=== PATIENT | female | born 1955 ===

== ENCOUNTER 2016-11-03 20:09 | Inpatient (IN) ==
--- NOTE | 2016-11-03 21:55 | Emergency Department Note ---
IIsidra Emily, am scribing for, and in the presence of, Corey Alfonso MD 21:13. Kaden Edmondson Hans, MD, personally performed the services described in this documentation, ascribed by Verona Miner in my presence, and it is both accurate and complete . Arrival - Arrival Chief Complaint: Altered Mental Status Stated Complaint: FALL, AMS ED Nursing Triage Note: PATIENT TO ROOM 20 VIA EMS WITH C/O ALTERED MENTAL STATUS AND MULTIPLE FALLS. FALLS X 2 TODAY. C/O SORENESS ALLOVER. Mode of Arrival: Stretcher Limitations: Altered Mental Status Source: Patient Time Seen by Provider: 11/03/16 20:36 - History of Present Illness HPI Narrative: Pt is a 61 y/o female who was brought to ED by EMS for further evaluation of AMS that has been ongoing for 3 weeks but worsened today. Daught Pt is poor historian due being very confused and is repetitive especially in mid thought/ sentence. Pt notes daughter comes to check on her daily and knows pt's PMHx. Onset (ago): month(s) Consistency: constant Severity: moderate Severity scale (1-10): 6 Quality: other (altered) Allergies/Adverse Reactions: Allergies Allergy/AdvReac Type Severity Reaction Status Date / Time No Known Allergies Allergy Unverified 10/27/16 12:43 Home Medications: Home Medications Medication Instructions Recorded Confirmed Type Aspirin [Ecotrin] 81 mg PO DAILY 10/27/16 10/27/16 History Carvedilol [Coreg] 6.25 mg PO BID 10/27/16 10/27/16 History Cyanocobalamin (Vitamin B-12) 1,000 mcg PO DAILY 10/27/16 10/27/16 History [Vitamin B-12] Ergocalciferol (Vitamin D2) 50,000 unit PO Q7D 10/27/16 10/27/16 History [Vitamin D2] Gabapentin 300 mg PO TID 10/27/16 10/27/16 History Glyburide/Metformin HCl 2 each PO BID W/MEALS 10/27/16 10/27/16 History [Glyburide-Metformin 5-500 mg] Insulin Aspart [NovoLOG FlexPen] 10 unit SUBCUT TID 10/27/16 10/27/16 History Insulin Detemir [Levemir FlexPen] 50 unit SUBCUT BEDTIME 10/27/16 10/27/16 History Lisinopril 20 mg PO DAILY 10/27/16 10/27/16 History Montelukast Tab [Singulair Tab] 10 mg PO DAILY 10/27/16 10/27/16 History SUMAtriptan TAB [Imitrex Tab] 50 mg PO QOTHER DAY 10/27/16 10/27/16 History Simvastatin 20 mg PO QPM 10/27/16 10/27/16 History prednisoLONE AC 1% OPH SUSP [Pred 1 drop BOTH EYES QID 10/27/16 10/27/16 History Forte] Review of System - Review of System ROS unobtainable: due to mental status Medical,Surgical,& Family Hx - Social History Smoking Status: Unknown if ever smoked Frequency of Alcohol Use: None Type of Drug Use: None Marital Status: Single Lives With:: Alone Functional capacity: independent ambulation Exam Vital Signs: Vital Signs Temperature 98.1 F 11/03/16 20:50 Pulse Rate 80 11/03/16 20:50 Respiratory Rate 20 11/03/16 20:50 Blood Pressure 163/82 11/03/16 20:50 O2 Sat by Pulse Oximetry 99 11/03/16 20:10 - General General appearance: alert, in no apparent distress, obese - Eye Eye exam: Present: PERRL, EOMI - ENT ENT exam: Present: mucous membranes moist. Absent: mucous membranes dry - Neck Neck exam: Present: full ROM. Absent: tenderness - Chest Chest inspection: Present: symmetric chest wall rise. Absent: tenderness - Respiratory Respiratory exam: Present: normal lung sounds bilaterally. Absent: respiratory distress - Cardiovascular Cardiovascular exam: Present: regular rate, normal rhythm, normal heart sounds - Extremities Exam Extremities exam: Present: full ROM. Absent: tenderness, pedal edema - Neurological Exam Neurological exam: Present: alert, CN II-XII intact, other (very confused). Absent: oriented X3, motor sensory deficit - Skin Skin exam: Present: warm, dry Course Course Narrative: This patient was evaluated by reviewing her records from [place]. She has had worsening confusion with frequent falls and balance issues and also has a what appears to be chronic cranial nerve palsy #3. Due to her frequent falls and recommendation for MRI by the radiologist looked at her head CT I discussed her presentation with the hospitalist on-call and he has agreed to see her for admission for MRI and neurology consultation. We will also check a urinalysis based on her symptoms to see if she has urinary tract infection but apparently her daughter says this was negative the chart on Wednesday. Disposition Clinical Impression: Altered mental status Case discussed with: patient, patient's family Disposition: Still a Patient Condition: Stable Time of Disposition: 21:55
--- NOTE | 2016-11-03 22:41 | Hospitalist History & Physical ---
Assessment and Plan (1) Diabetes Status: Acute Current Visit: Yes (2) Frequent falls Status: Acute Current Visit: Yes (3) Chronic sinusitis Status: Acute Current Visit: No (4) Altered mental status Status: Acute Assessment and plan: Plan for this patient. Patient does present a confusing picture. She is awake and sometimes seems alert and appropriate and then while talking with you she will zone out. Her mentation will drift away and she will talk about things that were not asked. I wonder if the patient is depressed. I do feel that we need to get a MRI of her brain and consult neurology. We will get physical therapy to see her need to x-ray both her knee she complains of a lot of pain in her knees. Family is concerned that they will not be able to take care of her at home if she continues to be like this. Current Visit: Yes History of Present Illness Chief complaint: Altered mental status frequent falling History of present illness: Ms. Anderson is a 61 year old female with past medical history significant for diabetes hypertension microvascular disease and neuropathy who was brought to our hospital from the [facility]. Patient's daughter reports that patient has had one sickness after another since July. The took a trip to [place] and seemed like her mother is gotten progressively ill during that time. But for the past few days her daughters noticed that her mom mentally is not right. She is awake but gets confused and drifts away in conversation. Sometimes she will repeat questions appropriately and sometimes she acts like she can answer. Daughter reports that the other day she had fallen and she cannot get up. Then a few minutes later her mother got up by herself without any problem. She has been seeing the internal medicine nurse who has been performing some cuttings on her legs. She reports this seems to help her. His come to the point now where it is hard for her to walk. 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 She has been dealing with that all her life. When you question the patient about where she is hurting she says she hurts all over Home Medications Medication Instructions Recorded Confirmed Type Aspirin [Ecotrin] 81 mg PO DAILY 10/27/16 10/27/16 History Carvedilol [Coreg] 6.25 mg PO BID 10/27/16 10/27/16 History Cyanocobalamin (Vitamin B-12) 1,000 mcg PO DAILY 10/27/16 10/27/16 History [Vitamin B-12] Ergocalciferol (Vitamin D2) 50,000 unit PO Q7D 10/27/16 10/27/16 History [Vitamin D2] Gabapentin 300 mg PO TID 10/27/16 10/27/16 History Glyburide/Metformin HCl 2 each PO BID W/MEALS 10/27/16 10/27/16 History [Glyburide-Metformin 5-500 mg] Insulin Aspart [NovoLOG FlexPen] 10 unit SUBCUT TID 10/27/16 10/27/16 History Insulin Detemir [Levemir FlexPen] 50 unit SUBCUT BEDTIME 10/27/16 10/27/16 History Lisinopril 20 mg PO DAILY 10/27/16 10/27/16 History Montelukast Tab [Singulair Tab] 10 mg PO DAILY 10/27/16 10/27/16 History SUMAtriptan TAB [Imitrex Tab] 50 mg PO QOTHER DAY 10/27/16 10/27/16 History Simvastatin 20 mg PO QPM 10/27/16 10/27/16 History prednisoLONE AC 1% OPH SUSP [Pred 1 drop BOTH EYES QID 10/27/16 10/27/16 History Forte] Allergies Allergy/AdvReac Type Severity Reaction Status Date / Time No Known Allergies Allergy Unverified 10/27/16 12:43 Medical,Surgical,& Family Hx - Medical History Neurology: History of: Neurological Problems (Neuropathy) Endocrine: History of: Diabetes Mellitus (IDDM) - Surgical History Additional Surgical History: None - Family History Family History: Reports;: Family Cancer, Family Diabetes, Additional Family History (Peripheral vascular disease) - Social History Smoking Status: Unknown if ever smoked Frequency of Alcohol Use: None Type of Drug Use: None ROS unobtainable: due to mental status Exam - Constitutional Vitals: Period Temp Pulse Resp BP Sys/Hartmann Pulse Ox Last 24 Hr 98.1 F-98.1 F 80-80 20-20 163-163/82-82 99 General appearance: morbidly obese - Head Head exam: Present: normal inspection - Eye Eye exam: Present: EOMI (Patient has a lag and her extraocular movements on her left this has been chronic) - ENT ENT exam: Present: normal exam - Neck Neck exam: Present: normal inspection - Respiratory Respiratory exam: Present: clear to auscultation bilaterally - Cardiovascular Cardiovascular exam: Present: regular rate and rhythm - GI/Abdominal GI/Abdominal exam: Present: normal bowel sounds - Extremities Exam Extremities exam: Present: other (Patient has pain with movement of her lower extremities. 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) - Back Exam Back exam: Present: normal inspection - Neurological Exam Neurological exam: Present: alert - Psychiatric Psychiatric exam: Present: normal affect - Skin Skin exam: Present: normal color Results - Labs Labs: Labs from outside facility total protein 8.1 calcium 9.6 creatinine 1.4 nightly 25 sodium 137 potassium 4.7 chloride 101 bicarb 26.7 albumin 3.7 total bili 0.6 alk phos 75 SGOT 38 SGPT 44 glucose [address] scan of her head that showed no significant change when compared to previous study nothing acute is identified but recommended if further evaluation is needed MRI she does have minimal bilateral cerebral ischemia in her atrophy is consistent with her age
[2016-11-03] MEDS ORDERED: GLUCAGON 1 MG VIAL IM PRN (22:55)
[2016-11-04 02:06] LABS: Apearance,Urine CLOUDY (Clear); Bacteria,Urine Moderate /HPF (Few); Bilirubin,Urine Negative (Negative); Blood, Urine Negative (Negative); Glucose,Urine (UA) Negative (Negative); Granular Casts,Urine 3 /LPF (0-1); Hyaline Casts,Urine 7 /LPF (0-3); Ketones,Urine 5 mg/dL (Negative); Mucus,Urine Occasional /LPF (Occasional); Nitrite,Urine Negative (Negative); Protein,Urine Negative; Squamous Epithelial Cell,Urine Few /HPF (0-10); Urine Color Yellow (Yellow); Urine Specific Gravity 1.024 (1.001-1.035); WBC,Urine 8 /HPF (0-6)
[2016-11-04] MEDS: ALBUTEROL 2.5 MG/3 ML NEB RESP TX SCH ×3 (07:00→19:19)
[2016-11-04 07:16] LABS: Basophils # 0.1 10*3/uL (0.0-0.2); Basophils % 0.5 % (0.0-0.8); Eosinophils % 0.1 % (0.00-10.9); Hematocrit 36.2 VOL% (35.7-47.0); Hemoglobin 12.3 GM/DL (12.0-16.0); Immature Granulocytes % 0.4 %; Immature Granulocytes Absolute 0.05 #; Lymphocytes # 2.2 10*3/uL (1.4-4.0); Lymphocytes % 16.2 % (21.3-54.2); Mean Corpuscular Hemoglobin 29 PG (27-34); Mean Corpuscular Volume 86.2 FL (87-102); Mean Platelet Volume 10.5 FL (9.6-12.0); Monocytes # 0.8 10*3/uL (0.11-0.8); Monocytes % 5.6 % (1.7-12.7); Neutrophils # 10.5 10*3/uL (1.4-7.4); Neutrophils % 77.2 % (38.7-73.9); Platelet Count 279 T/CUMM (130-400); Red Cell Distribution Width 12.7 % (9.3-17.3); White Blood Count 13.7 T/CUMM (4-12)
[2016-11-04 07:43] LABS: Calcium 9.1 MG/DL (8.5-10.1); Osmolality,Calculated 280.7 MOS/KG (273-304); Potassium 4.4 MMOL/L (3.5-5.1)
[2016-11-04] MEDS: INSULIN REGULAR 100 UNIT/ML SUBCUT SCH ×4 (08:35→22:08)
[2016-11-04] MEDS ORDERED: ASPIRIN EC 81 MG TABLET PO SCH (09:00)
[2016-11-04] MEDS ORDERED: ENOXAPARIN 40 MG/0.4 ML SYRINGE SUBCUT SCH (09:00)
--- NOTE | 2016-11-04 09:27 | XRay Report ---
XR knee 2V BI Indication: Knee pain after fall. Bilateral knees, 2 views each, 4 views total: Both knees demonstrate severe 3 compartment osteophyte development of significant joint space narrowing and varus deformity. I see no acute fracture. No dislocation. No joint effusion on either side. Impression: Severe 3 compartment osteoarthritis bilaterally. No acute injury identified. PROCEDURE INTERPRETED AT [facility] DEPARTMENT OF RADIOLOGY Final Report Signed by: Rakesh Saravia M.D.
[2016-11-04] MEDS: CYANOCOBALAMIN 500 MCG TABLET PO SCH (09:39)
[2016-11-04] MEDS: ERGOCALCIFEROL 50,000 UNIT CAPSULE PO SCH (09:39)
[2016-11-04] MEDS: glyBURIDE/METFORMIN 5-500 MG TABLET PO SCH ×2 (09:40→17:49)
[2016-11-04] MEDS: GABAPENTIN 300 MG CAPSULE PO SCH ×3 (09:41→21:06)
[2016-11-04] MEDS: CARVEDILOL 6.25 MG TABLET PO SCH ×2 (09:41→21:06)
[2016-11-04] MEDS: ACETAMINOPHEN 325 MG TABLET PO PRN (09:42)
[2016-11-04] MEDS: MONTELUKAST 10 MG TABLET PO SCH (09:43)
[2016-11-04] MEDS: LISINOPRIL 20 MG TABLET PO SCH (09:43)
--- NOTE | 2016-11-04 11:08 | Magnetic Resonance Report ---
History: Confusion. Altered level of consciousness. Chronic 3rd nerve palsy Date: 11/04/2016 Study: MRI brain without IV contrast Comparison exam: Noncontrast CT brain November 03, 2016 The brain was imaged in 3 planes on the 1.2 Ary magnet without IV contrast, to include diffusion, T2, FLAIR, gradient echo, and T1-weighted sequences. Some of the sequences have some moderate patient motion artifact. The ventricles are midline in position without evidence of hydrocephalus. There is no Chiari I malformation. There is no gross pituitary mass. The patient has a so-called empty pituitary sella. There is no evidence to suggest acute ischemia on the diffusion sequence. There is no gross mass present on this motion limited study. There is no evidence to suggest previous or current hemorrhage. There is no extra-axial hematoma. There is a normal flow void in the superior sagittal sinus. There is no gross flow abnormality in the [place] area. There is only a small amount of patchy increased T2 signal in the periventricular white matter without mass effect compatible with mild periventricular small vessel disease. There is mild mucosal thickening in the left maxillary sinus and both ethmoid sinuses. Impression: No acute intracranial process is identified. No evidence of ischemia. The study has some motion artifact limitation. There is some mild left maxillary and bilateral ethmoid sinus disease which could be chronic or allergic PROCEDURE INTERPRETED AT [facility] DEPARTMENT OF RADIOLOGY Final Report Signed by: Dr. Ileana Peoples
[2016-11-04 13:36] LABS: INR 1.1; PT Patient Result 11.4 SECS; Partial Thromboplastin Time 28.9 SECS (0-40)
[2016-11-04] MEDS ORDERED: AMPICILLIN INJ 2,000 MG in SODIUM CHLORIDE 0.9% 100 ML IV SCH (14:00)
--- NOTE | 2016-11-04 14:39 | CT Report ---
CT lumbar spine w con Indication: Bilateral lower extremity weakness Comparison: None. Technique: Routine CT of the lumbar spine was performed without the administration of intravenous contrast. Axial images as well as coronal and sagittal MPR images of the lumbar spine was submitted for interpretation. The total DLP is 3040 mGy*cm. Findings: Lumbar vertebral bodies demonstrate normal alignment. Vertebral body height is well maintained throughout the lumbar spine. Mild focal disc space loss is noted at L1-L2 and L2-L3. There is also moderate to advanced facet arthropathy at L3-4 through L5-S1. There is suggestion of moderate to severe central stenosis at the L4-5 level due to facet/ligamentum flavum hypertrophy and a prominent posterior disc bulge. This is not well visualized due to CTA technique. Otherwise, there is no evidence of significant central stenosis. The prevertebral soft tissues as well as posterior paraspinous musculature and imaged intra-abdominal contents demonstrate no evidence of acute pathology. Partially imaged bladder appears prominently distended. Impression: 1. No acute fracture or subluxation within the lumbar spine. Multilevel degenerative changes as detailed above. 2. Possible focal disc bulge/protrusion at L4-L5 with associated degenerative changes causing at least moderate spinal stenosis. This is not well visualized due to CT technique. 3. Bladder is only partially imaged but appears probably distended. 11/04/2016 2:31 PM PROCEDURE INTERPRETED AT [facility] DEPARTMENT OF RADIOLOGY Final Report Signed by: Santino Elliott
--- NOTE | 2016-11-04 14:41 | CT Report ---
Exam: CT cervical spine with contrast Date: 11/04/2016 Comparison: None Reason: Bilateral lower extremity weakness Technique: Axial images of the cervical spine were obtained following the injection 100 cc of Omnipaque 350.. Sagittal and coronal reformatted images were also acquired. Total DLP is 3804.8 mGy*cm. Findings: Straightening of the cervical spine with no fracture, dislocation, or definite spinal cord pathology. There is streak artifact from the shoulders which limits the scans. No definite abnormal enhancement is identified. At C2-C3, no disc protrusion or spinal stenosis with minimal right foraminal stenosis At C3-C4, diffuse osteophyte/disc complex which contacts the thecal sac. No spinal stenosis or foraminal stenosis. At C4-C5, osteophyte/disc complex which contacts the right side of the spinal cord. Minimal spinal stenosis and bilateral foraminal stenosis. At C5-C6, osteophyte/disc complex which contacts the thecal sac. No spinal stenosis or foraminal stenosis. At C6-C7, osteophyte/disc complex which contacts the thecal sac. No spinal stenosis or foraminal stenosis. At C7-T1, no disc protrusion, spinal stenosis, or foraminal stenosis. Impression: Straightening of the cervical spine with no fracture. These scans are limited by streak artifact from the shoulders with evidence of multilevel DDD as above noted. MRI is more sensitive for spinal cord pathology and is recommended if symptoms persist. This CT exam was performed using one or more of the following dose reduction techniques: Automatic exposure control, adjustment of the MA and/or KV according to patient size, or use of iterative reconstruction technique. PROCEDURE INTERPRETED AT [facility] DEPARTMENT OF RADIOLOGY Final Report Signed by: Dr. Natalee Quintana
--- NOTE | 2016-11-04 14:52 | CT Report ---
Exam:CT thoracic spine w con Indication: Bilateral lower extremity weakness The total DLP is 3040 mGy*cm. Comparison: None available Technique: Multiple axial tomographic images were obtained of the thoracic spine without the use of IV contrast. Coronal and sagittal reformations were provided. Findings: Study is limited due to patient motion and streak artifact with portions of the upper thoracic cord not well visualized. Evaluation is made within the technical confines. Vertebral body heights and alignment are maintained. There is no acute fracture or dislocation. Idiopathic skeletal hypertrophy changes with prominent bridging osteophytes are noted of the lower thoracic levels. There is mild rightward scoliotic deformity of the thoracic spine. No obvious spinal canal or neuroforaminal narrowing. The visualized surrounding soft tissues have a normal appearance. IMPRESSION: No CT evidence of acute injury to the osseous thoracic spine. Evaluation is limited for assessment of the spinal cord given CT technique/patient motion. If there is continued clinical concern for spinal cord compression, MRI thoracic spine would be recommended. PROCEDURE INTERPRETED AT [facility] DEPARTMENT OF RADIOLOGY Final Report Signed by: Santino Elliott
[2016-11-04 15:21] LABS: ABG Base Excess -2.2 MMOL/L (-2.5-2.5); ABG HCO3 22.6 MMOL/L (20-26); ABG Oxygen Saturation 98.1 % (95-100); ABG PCO2 32.2 MM HG (35-48); ABG PH 7.427 (7.35-7.45); ABG TCO2 18.5 MMOL/L (23-27); Allen Test Positive; Pt O2 Delivery Device Room Air
--- NOTE | 2016-11-04 15:25 | Neurology Consult Note ---
History of Present Illness History of present illness: Ms. Anderson is a 61 year old female with past medical history significant for diabetes hypertension microvascular disease and neuropathy who was brought to our hospital from the [facility]. Patient's reported that patient has been sick since July. They took a trip to [place] and seemed she has gotten progressively ill during that time. But for the past few days her daughters noticed that her mom mentally is not right. She is awake but gets confused and drifts away in conversation. Sometimes she will repeat questions appropriately and sometimes she acts like she can answer. Daughter reports that the other day she had fallen and she cannot get up. Then a few minutes later her mother got up by herself without any problem. She has been seeing the emergency medicine who has been performing some cuttings on her legs. She reports this seems to help her. His come to the point now where it is hard for her to walk. 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 She has been dealing with that all her life. MRI of the brain is unremarkable for any acute stroke. CT of the lumbar thoracic and cervical spine reveals multilevel DDD. Home Medications Medication Instructions Recorded Confirmed Type Aspirin [Ecotrin] 81 mg PO DAILY 10/27/16 11/04/16 History Carvedilol [Coreg] 6.25 mg PO BID 10/27/16 11/04/16 History Cyanocobalamin (Vitamin B-12) 1,000 mcg PO DAILY 10/27/16 11/04/16 History [Vitamin B-12] Ergocalciferol (Vitamin D2) 50,000 unit PO Q7D 10/27/16 11/04/16 History [Vitamin D2] Gabapentin 300 mg PO TID 10/27/16 11/04/16 History Glyburide/Metformin HCl 2 each PO BID W/MEALS 10/27/16 11/04/16 History [Glyburide-Metformin 5-500 mg] Insulin Aspart [NovoLOG FlexPen] 10 unit SUBCUT TID W/MEALS 10/27/16 11/04/16 History Insulin Detemir [Levemir FlexPen] 50 unit SUBCUT BEDTIME 10/27/16 11/04/16 History Lisinopril 20 mg PO DAILY 10/27/16 11/04/16 History Montelukast Tab [Singulair Tab] 10 mg PO DAILY 10/27/16 11/04/16 History SUMAtriptan TAB [Imitrex Tab] 50 mg PO Q2-3H PRN 10/27/16 11/04/16 History Simvastatin 20 mg PO QPM 10/27/16 11/04/16 History prednisoLONE AC 1% OPH SUSP [Pred 1 drop BOTH EYES QID 10/27/16 11/04/16 History Forte] Albuterol Inhaler [Proventil 2 puff INH Q6HR 11/03/16 11/04/16 History Inhaler] Mineral Oil/Petrolatum,White 3.5 gm BOTH EYES BEDTIME PRN 11/04/16 11/04/16 History [Artificial Tears Eye Ointment] Propylene Glycol/Peg 400 [Systane 15 ml BOTH EYES QID PRN 11/04/16 11/04/16 History Gel Drops] Allergies Allergy/AdvReac Type Severity Reaction Status Date / Time No Known Allergies Allergy Unverified 10/27/16 12:43 12 point system: reviewed and no additional remarkable complaints except as stated Medical,Surgical,& Family Hx - Medical History Cardio: History of: Hypertension Neurology: History of: Neurological Problems (Neuropathy) Endocrine: History of: Diabetes Mellitus (IDDM) - Family History Family History: Reports;: Family Cancer, Family Diabetes, Additional Family History (Peripheral vascular disease) - Social History Smoking Status: Unknown if ever smoked Frequency of Alcohol Use: None Type of Drug Use: None Exam - Constitutional Vitals: Period Temp Pulse Resp BP Sys/Hartmann Pulse Ox Last 24 Hr 97.4 F-100.0 F 72-92 16-20 125-135/67-78 92-99 Exam: GENERAL: Patient is in no acute distress. NECK: Neck is supple. There is no JVD. No carotid bruits present. No thyroid masses. CVS: First and second heart sounds are normal. There is no S3 present. Regular rate and rhythm. RESPIRATORY: Lungs are clear to auscultation without any rales or rhonchi. ABDOMEN: Soft and non-tender. Bowel sounds are present. There is no hepatosplenomegaly. EXT: There is no palpable edema. Peripheral pulses are present. Skin: No rashes Central Nervous system: General: Alert, awake and Oriented x 3 Speech: Fluent Comprehension: Intact and normal Facial expressions: Normal Cranial Nerves: CN1/Olfactory: Normal CN II/ Optic: Normal, Visual Yoon unreliable CN III, and : LIVIA & EOMI CN V: Normal & intact CN VII: face is symmetric CNVIII: Normal CN XI/X/XI/XII: Intact and Normal Motor: Bulk and Tone is normal. Strength in the right 3/5 Strength in the left 3/5 Sensory: Decreased for all the modalities of PP, LT and temp sense Reflexes: 1+ and symmetrical Cerebellar function: Normal finger to nose and heel to stuart testing. Toes: Equivocal Gait: N not tested Results - Labs CBC & BMP: 11/04/16 07:03 11/04/16 07:03 Assessment and Plan (1) Debility Status: Acute Assessment and plan: This is multifactorial. No clear evidence of stroke, TIAs, epilepsy, seizure, primary QUALITY CONTROL ASSISTANT or spinal cord injuries/pathology. Continue current management. Consult TMR Current Visit: Yes
[2016-11-04] MEDS: DESITIN 4OZ/NYSTATIN 15 GRAM MIXTURE PASTE TOP SCH ×2 (16:17→21:06)
[2016-11-04] MEDS: prednisoLONE ACETATE 1% OPH SUSP 5 ML BOTTLE BOTH EYES SCH ×4 (16:17→21:06)
[2016-11-04] MEDS: AMPICILLIN INJ 2,000 MG in SODIUM CHLORIDE 0.9% 100 ML IV SCH ×2 (17:28→23:48)
[2016-11-04] MEDS: cefTRIAXone 2,000 MG in SODIUM CHLORIDE 0.9% 100 ML IV SCH (18:12)
--- NOTE | 2016-11-04 18:39 | Hospitalist Progress Note ---
Assessment and Plan (1) Altered mental status Status: Acute Assessment and plan: MRI of the brain shows no evidence of stroke, ABG shows no elevation in PCO2, ammonia level 19, patient does have evidence of a UTI. Patient was put on prophylactic antibiotics to cover meningitis and encephalitis. Spoke at length with Dr. Ramsey and will proceed with spinal tap tomorrow. Continue Rocephin, vancomycin, ampicillin and acyclovir. Current Visit: Yes (2) Leukocytosis Status: Acute Assessment and plan: MRI shows chronic sinus disease. Does have a UTI should be adequately covered by Rocephin culture pending Current Visit: Yes (3) UTI (urinary tract infection) Status: Acute Assessment and plan: Continue Rocephin Current Visit: Yes (4) Diabetes Status: Acute Assessment and plan: Continue metformin and glyburide Current Visit: Yes (5) Frequent falls Status: Acute Assessment and plan: PT and OT, consult [facility] for rehab, CTs showed no evidence of acute fracture or spinal cord impingement other than the spinal stenosis at L4-L5, consider EMG Current Visit: Yes (6) Debility Status: Acute Assessment and plan: PT and OT and [facility] for rehab Current Visit: Yes Hospitalist: Subjective Interval history: Discussed case with Dr. Ramsey at length. We will proceed with the spinal tap tomorrow but he does not believe she has meningitis or encephalitis. She was alert and oriented 3 when he saw her and he saw no evidence of odd behavior. Daughter was not in the room at the time when Dr. Ramsey interviewed her but she was alert and oriented times 3 for him. When I spoke with her she got the month wrong. Daughter was concerned that she injured her back after a fall causing difficulty walking. CT of spinal cord done. During her MRI she was very agitated and moving around and they said they did not get a good picture but it was read Dr. Ramsey reviewed the MRI. Patient tore out her IV, she started licking the MRI machine and started to eat her arm band. Daughter says over the last week she has been having odd behavior and it is not consistent. She also most recently developed more difficulty walking on to the point where she cannot walk. Dr. Ramsey will do an EMG on her legs tomorrow and will plan on taking her to [facility] for rehab. Exam - Constitutional Vitals: Period Temp Pulse Resp BP Sys/Hartmann Pulse Ox Last 24 Hr 97.4 F-100.0 F 72-92 16-20 125-135/67-78 92-99 Exam: Heart Rate-[RRR] Lungs-[CTAB] GI-[+bs soft, NT] Ext-[no edema] Neuro [Motor 5/5], [alert and oriented times 2], easily falling asleep psych [normal mood and affect] General [no acute distress] Results - Labs CBC & BMP: 11/04/16 07:03 11/04/16 07:03 - Diagnostic Findings Procedure: CT: report reviewed by me (Nothing acute but does have some spinal stenosis at L4-L5), MRI: report reviewed by me (no evidence of stroke )
[2016-11-04] MEDS: ACYCLOVIR IV SCH (18:56)
[2016-11-04] MEDS: SODIUM CHLORIDE 0.9% IV SCH (18:56)
[2016-11-04] MEDS: VANCOMYCIN INJ 2,500 MG in SODIUM CHLORIDE 0.9% 500 ML IV SCH (20:36)
[2016-11-04] MEDS: SIMVASTATIN 20 MG TABLET PO SCH (21:06)
[2016-11-05] MEDS: ALBUTEROL 2.5 MG/3 ML NEB RESP TX SCH ×4 (01:12→19:25)
[2016-11-05] MEDS: AMPICILLIN INJ 2,000 MG in SODIUM CHLORIDE 0.9% 100 ML IV SCH ×4 (02:01→15:20)
[2016-11-05] MEDS: SODIUM CHLORIDE 0.9% IV SCH ×3 (03:12→21:04)
[2016-11-05] MEDS: ACYCLOVIR IV SCH ×3 (03:12→21:04)
[2016-11-05] MEDS: cefTRIAXone 2,000 MG in SODIUM CHLORIDE 0.9% 100 ML IV SCH ×2 (05:56→22:23)
[2016-11-05 06:35] LABS: Basophils # 0.1 10*3/uL (0.0-0.2); Basophils % 0.6 % (0.0-0.8); Eosinophils % 0.1 % (0.00-10.9); Hematocrit 38.3 VOL% (35.7-47.0); Hemoglobin 12.8 GM/DL (12.0-16.0); Immature Granulocytes % 0.4 %; Immature Granulocytes Absolute 0.06 #; Lymphocytes # 2.1 10*3/uL (1.4-4.0); Lymphocytes % 13.1 % (21.3-54.2); Mean Corpuscular HGB Conc 33.4 GM/DL (32-36); Mean Corpuscular Hemoglobin 29 PG (27-34); Mean Corpuscular Volume 87.8 FL (87-102); Mean Platelet Volume 10.4 FL (9.6-12.0); Monocytes % 6.5 % (1.7-12.7); Neutrophils # 12.4 10*3/uL (1.4-7.4); Neutrophils % 79.3 % (38.7-73.9); Platelet Count 298 T/CUMM (130-400); Red Blood Count 4.36 MC/CUMM (3.8-5.5); Red Cell Distribution Width 12.6 % (9.3-17.3); White Blood Count 15.6 T/CUMM (4-12)
[2016-11-05 07:09] LABS: Albumin 3.2 G/DL (3.4-5.0); Bilirubin,Total 0.7 MG/DL (0.2-1.0); Calcium 8.6 MG/DL (8.5-10.1); Osmolality,Calculated 288.1 MOS/KG (273-304); Potassium 4.5 MMOL/L (3.5-5.1); Total Protein 6.8 G/DL (6.4-8.3)
[2016-11-05] MEDS: DESITIN 4OZ/NYSTATIN 15 GRAM MIXTURE PASTE TOP SCH ×2 (08:00→21:04)
[2016-11-05] MEDS: LISINOPRIL 20 MG TABLET PO SCH ×2 (08:00→12:20)
[2016-11-05] MEDS: INSULIN REGULAR 100 UNIT/ML SUBCUT SCH ×4 (08:00→22:23)
[2016-11-05] MEDS: CYANOCOBALAMIN 500 MCG TABLET PO SCH (08:00)
[2016-11-05] MEDS: glyBURIDE/METFORMIN 5-500 MG TABLET PO SCH ×2 (08:00→17:21)
[2016-11-05] MEDS: VANCOMYCIN INJ 2,500 MG in SODIUM CHLORIDE 0.9% 500 ML IV SCH ×2 (08:00→16:10)
[2016-11-05] MEDS: MONTELUKAST 10 MG TABLET PO SCH (08:00)
[2016-11-05] MEDS: GABAPENTIN 300 MG CAPSULE PO SCH ×3 (08:00→21:04)
[2016-11-05] MEDS: CARVEDILOL 6.25 MG TABLET PO SCH ×3 (08:00→21:04)
--- NOTE | 2016-11-05 10:27 | Hospitalist Progress Note ---
Assessment and Plan (1) Altered mental status Status: Acute Assessment and plan: Dr. Ramsey will continue to follow. Will proceed with spinal tap to rule out meningitis encephalitis. Current Visit: Yes (2) Leukocytosis Status: Acute Assessment and plan: MRI shows chronic sinus disease. Does have a UTI with two types of gram negative rods cont rocephin IV Current Visit: Yes (3) UTI (urinary tract infection) Status: Acute Assessment and plan: Growing two types of gram negative rods, continue Rocephin Current Visit: Yes (4) Diabetes Status: Acute Assessment and plan: Hemoglobin A1c 7, continue metformin and glyburide Current Visit: Yes (5) Frequent falls Status: Acute Assessment and plan: PT and OT, consult [facility] for rehab, CTs showed no evidence of acute fracture or spinal cord impingement other than the spinal stenosis at L4-L5, EMG today bilateral LE Current Visit: Yes (6) Debility Status: Acute Assessment and plan: PT and OT and [facility] for [facility] Current Visit: Yes Hospitalist: Subjective Interval history: Patient's legs seem a little stronger today. She is still delayed on her answers even though her answers are mostly right. Patient seems very sleepy and readily falls back to sleep. She needs a sleep study. We will proceed with a spinal tap today. Dr. Ramsey will continue to follow Exam - Constitutional Vitals: Period Temp Pulse Resp BP Sys/Hartmann Pulse Ox Last 24 Hr 98.1 F-99.7 F 61-85 16-22 145-157/75-99 96-99 Exam: Heart Rate-[RRR] Lungs-[CTAB] GI-[+bs soft, NT] Ext-[no edema] Neuro [Motor 4/5 LE and 5/5 in UE], [alert and oriented times 2], easily falling asleep psych [normal mood and flat affect] General [no acute distress] Results - Labs CBC & BMP: 11/05/16 06:19 11/05/16 06:19 Lab Results: I have reviewed the past 24 hour labs Labs: Patient growing gram-negative rods 2 in her urine.
--- NOTE | 2016-11-05 10:42 | Post Interventional Procedure ---
Pre-op diagnosis: AMS Post-op diagnosis: same Procedure: LP Flouroscopy: 0.1 min Radiologist: Rakesh Saravia Anesthesia: local Specimens: other (8 cc CSF) Estimated blood loss: none Complications: none Condition: stable Description/Findings: OP 18 cm-water Assessment and Plan - Time spent with patient Time spent with patient: Less than 30 minutes
[2016-11-05] MEDS: prednisoLONE ACETATE 1% OPH SUSP 5 ML BOTTLE BOTH EYES SCH ×4 (10:48→21:04)
[2016-11-05 11:31] LABS: Lymphocytes,CSF 79 %; Neutrophils,CSF 21 %
[2016-11-05 11:33] LABS: Appearance,CSF Hazy; Red Blood Cell,CSF 6 C/CUMM; White Blood Cell,CSF 1932 C/CUMM
--- NOTE | 2016-11-05 12:40 | Interventional Radiology Rpt ---
IR lumbar puncture diagnostic Indication: Altered mental status. Lumbar puncture with fluoroscopy Description: Formal timeout was performed. Maximum sterile barrier technique used. The patient was placed prone on the fluoroscopy table. The low back was prepped and draped in a sterile fashion. A midline lumbar puncture was then performed at the L3-4 interspace using a 22-gauge spinal needle. Fluoroscopic guidance was used and a captured image documents the needle position. An opening pressure of 18 cm water was obtained. 8 cc clear, colorless CSF was withdrawn and sent to laboratory. Needle was removed and a bandage placed the puncture site. Fluoroscopy time: 0.1 minutes. Impression: Lumbar puncture as described. PROCEDURE INTERPRETED AT [facility] DEPARTMENT OF RADIOLOGY Final Report Signed by: Rakesh Saravia M.D.
--- NOTE | 2016-11-05 14:13 | Sleep Medicine Consult ---
Assessment and Plan (1) Unspecified sleep apnea Status: Acute Assessment and plan: This patient does have some symptoms of snoring and sleepiness in recent weeks. There is nothing dramatically suggestive of severe obstructive sleep apnea. I do not think sleep apnea is a primary contributing factor to her current illness. However, with her obesity, snoring, and history of type 2 diabetes, I do think that she needs outpatient polysomnography. She resides in [facility] and her daughter works in [employer]. We can set her up for outpatient polysomnography at the [facility] sleep center. Current Visit: Yes (2) Diabetes Status: Acute Assessment and plan: The prevalence for obstructive sleep apnea in patients with obesity and type 2 diabetes can be as high as 86%. This patient should be evaluated for sleep apnea. Patients with type 2 diabetes who have moderate to severe sleep apnea are at greater risk for developing complications of diabetic neuropathy and nephropathy. Current Visit: Yes (3) Obesity, unspecified Status: Acute Assessment and plan: Patient encouraged to continue to work on weight loss thru appropriate dieting and exercise. The combination of weight loss and CPAP therapy for obstructive sleep apnea is better than either therapy alone for obstructive sleep apnea. Current Visit: Yes History of Present Illness Chief complaint: Sleep apnea History of present illness: Ms. Anderson is a 61 year old female admitted for mental status changes and undergoing neurological evaluation. She had lumbar puncture today with CSF analysis. She has had waxing and waning mental status changes notable for periods of lethargy and hypersomnolence. Physicians have noted periods of delusional thinking and talking out of her head intermixed with periods of hypersomnolence. The daughter is at the bedside and states that she does have a history of snoring but does not describe it is loud or disruptive. She has not been observed to stop breathing during her sleep. The patient denies awakening from sleep short of breath. She only usually arouses once at night to urinate. There is no significant symptoms of restless legs or leg jerks. The daughter denies any significant sleepiness during the day up until the last week or 2. Home Medications Medication Instructions Recorded Confirmed Type Aspirin [Ecotrin] 81 mg PO DAILY 10/27/16 11/04/16 History Carvedilol [Coreg] 6.25 mg PO BID 10/27/16 11/04/16 History Cyanocobalamin (Vitamin B-12) 1,000 mcg PO DAILY 10/27/16 11/04/16 History [Vitamin B-12] Ergocalciferol (Vitamin D2) 50,000 unit PO Q7D 10/27/16 11/04/16 History [Vitamin D2] Gabapentin 300 mg PO TID 10/27/16 11/04/16 History Glyburide/Metformin HCl 2 each PO BID W/MEALS 10/27/16 11/04/16 History [Glyburide-Metformin 5-500 mg] Insulin Aspart [NovoLOG FlexPen] 10 unit SUBCUT TID W/MEALS 10/27/16 11/04/16 History Insulin Detemir [Levemir FlexPen] 50 unit SUBCUT BEDTIME 10/27/16 11/04/16 History Lisinopril 20 mg PO DAILY 10/27/16 11/04/16 History Montelukast Tab [Singulair Tab] 10 mg PO DAILY 10/27/16 11/04/16 History SUMAtriptan TAB [Imitrex Tab] 50 mg PO Q2-3H PRN 10/27/16 11/04/16 History Simvastatin 20 mg PO QPM 10/27/16 11/04/16 History prednisoLONE AC 1% OPH SUSP [Pred 1 drop BOTH EYES QID 10/27/16 11/04/16 History Forte] Albuterol Inhaler [Proventil 2 puff INH Q6HR 11/03/16 11/04/16 History Inhaler] Mineral Oil/Petrolatum,White 3.5 gm BOTH EYES BEDTIME PRN 11/04/16 11/04/16 History [Artificial Tears Eye Ointment] Propylene Glycol/Peg 400 [Systane 15 ml BOTH EYES QID PRN 11/04/16 11/04/16 History Gel Drops] Allergies Allergy/AdvReac Type Severity Reaction Status Date / Time No Known Allergies Allergy Unverified 10/27/16 12:43 Review of systems: Otherwise unremarkable other than stated in HPI from sleep standpoint. Exam (Pulmonay) H&P - Constitutional Vitals: Period Temp Pulse Resp BP Sys/Hartmann Pulse Ox Last 24 Hr 98.1 F-99.7 F 61-85 16-22 145-159/75-99 95-99 Exam: This patient is awake and responsive and answers questions but does give irrational answers. Pupils equal round reactive to light and accommodation. Extraocular movements intact. Oropharynx with class III Mallampati exam. Neck supple without adenopathy or thyromegaly. Chest with symmetrical breath sounds without focal wheeze, rhonchi, or rales. Cardiac exam reveals a regular rhythm without murmur or gallop. Abdomen very obese nontender without palpable hepatosplenomegaly or mass. Extremities without significant edema clubbing. Neurologically, she moves all extremities with good movement and strength. Medical,Surgical,& Family Hx - Medical History Cardio: History of: Hypertension Neurology: History of: Neurological Problems (Neuropathy) Endocrine: History of: Diabetes Mellitus (IDDM) - Family History Family History: Reports;: Family Cancer, Family Diabetes, Additional Family History (Peripheral vascular disease) - Social History Smoking Status: Unknown if ever smoked Frequency of Alcohol Use: None Type of Drug Use: None Results - Labs CBC & BMP: 11/05/16 06:19 11/05/16 06:19 Lab Results: I have reviewed the past 24 hour labs Specialty Discharge - Follow Up or Referrals Follow up with: Donna Sawant MD [Physician] - 11/18/16 1:15 pm (sleep center will mail out some new admit papers and need to bring them with her to her appointment)
--- NOTE | 2016-11-05 14:58 | Neurology Progress Note ---
Neurology - PN : Subjective Interval history: Patient seems to be doing about the same. Mentally she is she is clear as per daughter. Nerve conduction study/EMG reveals severe peripheral neuropathy but no acute denervation to suggest acute neuropathy. CSF findings noted suggestive of viral meningitis. Exam (Progress Note) - Constitutional Vitals: Period Temp Pulse Resp BP Sys/Hartmann Pulse Ox Last 24 Hr 98.1 F-99.7 F 61-85 16-22 145-159/75-99 95-99 Exam: GENERAL: Patient is in no acute distress. NECK: Neck is supple. There is no JVD. No carotid bruits present. No thyroid masses. CVS: First and second heart sounds are normal. There is no S3 present. Regular rate and rhythm. RESPIRATORY: Lungs are clear to auscultation without any rales or rhonchi. ABDOMEN: Soft and non-tender. Bowel sounds are present. There is no hepatosplenomegaly. EXT: There is no palpable edema. Peripheral pulses are present. Skin: No rashes Central Nervous system: General: Alert, awake Speech: Fluent Comprehension: Intact and normal Facial expressions: Normal Cranial Nerves: CN1/Olfactory: Normal CN II/ Optic: Normal, Visual Yoon unreliable CN III, and : LIVIA & EOMI CN V: Normal & intact CN VII: face is symmetric CNVIII: Normal CN XI/X/XI/XII: Intact and Normal Motor: Bulk and Tone is normal. Strength in the right 3/5 Strength in the left 3/5 Sensory: Decreased for all the modalities of PP, LT and temp sense Reflexes: 1+ and symmetrical Cerebellar function: Normal finger to nose and heel to stuart testing. Toes: Equivocal Gait: not tested Results - Labs CBC & BMP: 11/05/16 06:19 11/05/16 06:19 Assessment and Plan (1) Debility Status: Acute Assessment and plan: This is multifactorial. Current Visit: Yes (2) Viral meningitis Status: Acute Assessment and plan: Agree with acyclovir Will stop ampicillin Continue Rocephin Current Visit: Yes Specialty Discharge - Follow Up or Referrals Follow up with: Donna Sawant MD [Physician] - 11/18/16 1:15 pm (sleep center will mail out some new admit papers and need to bring them with her to her appointment)
[2016-11-05] MEDS: SIMVASTATIN 20 MG TABLET PO SCH (21:04)
[2016-11-06] MEDS: ALBUTEROL 2.5 MG/3 ML NEB RESP TX SCH ×4 (01:53→19:27)
[2016-11-06] MEDS: ACYCLOVIR IV SCH ×3 (02:46→21:40)
[2016-11-06] MEDS: SODIUM CHLORIDE 0.9% IV SCH ×3 (02:46→21:40)
[2016-11-06] MEDS: VANCOMYCIN INJ 2,500 MG in SODIUM CHLORIDE 0.9% 500 ML IV SCH ×2 (05:07→15:27)
[2016-11-06 06:36] LABS: Basophils # 0.1 10*3/uL (0.0-0.2); Basophils % 0.8 % (0.0-0.8); Eosinophils # 0.1 10*3/uL (0.0-0.87); Eosinophils % 0.3 % (0.00-10.9); Hematocrit 35.9 VOL% (35.7-47.0); Hemoglobin 12.5 GM/DL (12.0-16.0); Immature Granulocytes % 0.5 %; Immature Granulocytes Absolute 0.07 #; Lymphocytes % 19.5 % (21.3-54.2); Mean Corpuscular HGB Conc 34.8 GM/DL (32-36); Mean Corpuscular Hemoglobin 30 PG (27-34); Mean Corpuscular Volume 84.7 FL (87-102); Monocytes % 6.8 % (1.7-12.7); Neutrophils # 11.1 10*3/uL (1.4-7.4); Neutrophils % 72.1 % (38.7-73.9); Platelet Count 276 T/CUMM (130-400); Red Blood Count 4.24 MC/CUMM (3.8-5.5); Red Cell Distribution Width 12.6 % (9.3-17.3); White Blood Count 15.3 T/CUMM (4-12)
[2016-11-06] MEDS: cefTRIAXone 2,000 MG in SODIUM CHLORIDE 0.9% 100 ML IV SCH ×2 (06:54→17:28)
[2016-11-06 07:20] LABS: Albumin 3.1 G/DL (3.4-5.0); Calcium 8.5 MG/DL (8.5-10.1); Osmolality,Calculated 276.7 MOS/KG (273-304); Potassium 4.1 MMOL/L (3.5-5.1); Total Protein 6.6 G/DL (6.4-8.3)
[2016-11-06] MEDS: INSULIN REGULAR 100 UNIT/ML SUBCUT SCH ×4 (07:45→21:39)
[2016-11-06] MEDS: MONTELUKAST 10 MG TABLET PO SCH (08:32)
[2016-11-06] MEDS: CYANOCOBALAMIN 500 MCG TABLET PO SCH (08:32)
[2016-11-06] MEDS: GABAPENTIN 300 MG CAPSULE PO SCH ×3 (08:33→21:36)
[2016-11-06] MEDS: CARVEDILOL 6.25 MG TABLET PO SCH ×2 (08:33→21:38)
[2016-11-06] MEDS: glyBURIDE/METFORMIN 5-500 MG TABLET PO SCH ×2 (08:33→17:26)
[2016-11-06] MEDS: LISINOPRIL 20 MG TABLET PO SCH (08:33)
[2016-11-06] MEDS: prednisoLONE ACETATE 1% OPH SUSP 5 ML BOTTLE BOTH EYES SCH ×4 (08:40→21:47)
[2016-11-06] MEDS: DESITIN 4OZ/NYSTATIN 15 GRAM MIXTURE PASTE TOP SCH ×2 (08:40→21:48)
--- NOTE | 2016-11-06 10:17 | Pathology Report from [facility] ---
ACCESSION # : [id number] PATIENT NAME : Ronda Anderson ORDERING DR : CANELO PALENCIA MD CLINICAL HX: Altered Mental Status POST-OP DX: Same SPECIMEN INFO: Fluid,CSF - .5 ml's clear CLASS: II CLASS COMMENTS: Increased lymphocytes. CLASS LEGEND: CLASS 0 Material inadequate for diagnosis because of (see comment) CLASS I Absence of atypical or abnormal cells CLASS II Atypical Cytology but no evidence of malignancy CLASS III Cytology suggestive of but not conclusive for malignancy CLASS IV Cytology strongly suggestive of malignancy CLASS V Cytology conclusive for malignancy SERVICE DATE: 11/05/2016 REPORT DATE: 11/06/2016 PATHOLOGIST: Cassandra Kennedy III, M.D. MTDD
--- NOTE | 2016-11-06 11:56 | Neurology Progress Note ---
Neurology - PN : Subjective Interval history: Pt seems to be doing better. Was quite confused last night as per family but feeling better now. Exam (Progress Note) - Constitutional Vitals: Period Temp Pulse Resp BP Sys/Hartmann Pulse Ox Last 24 Hr 97.7 F-99.7 F 72-94 16-20 127-169/68-97 95-98 Exam: GENERAL: Patient is in no acute distress. NECK: Neck is supple. There is no JVD. No carotid bruits present. No thyroid masses. CVS: First and second heart sounds are normal. There is no S3 present. Regular rate and rhythm. RESPIRATORY: Lungs are clear to auscultation without any rales or rhonchi. ABDOMEN: Soft and non-tender. Bowel sounds are present. There is no hepatosplenomegaly. EXT: There is no palpable edema. Peripheral pulses are present. Skin: No rashes Central Nervous system: General: Alert, awake Speech: Fluent Comprehension: Intact and normal Facial expressions: Normal Cranial Nerves: CN1/Olfactory: Normal CN II/ Optic: Normal, Visual Yoon unreliable CN III, and : LIVIA & EOMI CN V: Normal & intact CN VII: face is symmetric CNVIII: Normal CN XI/X/XI/XII: Intact and Normal Motor: Bulk and Tone is normal. Strength in the right 3/5 Strength in the left 3/5 Sensory: Decreased for all the modalities of PP, LT and temp sense Reflexes: 1+ and symmetrical Cerebellar function: Normal finger to nose and heel to stuart testing. Toes: Equivocal Gait: not tested Results - Labs CBC & BMP: 11/06/16 06:27 11/06/16 06:27 Assessment and Plan (1) Debility Status: Acute Assessment and plan: This is multifactorial. Current Visit: Yes (2) Viral meningitis Status: Acute Assessment and plan: Cont acyclovir Continue Rocephin Add Seroquel 25 mg po hs Start PT and OT Current Visit: Yes Specialty Discharge - Follow Up or Referrals Follow up with: Donna Sawant MD [Physician] - 11/18/16 1:15 pm (sleep center will mail out some new admit papers and need to bring them with her to her appointment)
--- NOTE | 2016-11-06 13:43 | Hospitalist Progress Note ---
Assessment and Plan (1) Viral meningitis Status: Acute Assessment and plan: cont acyclovir and rocephin and vanco for now. Dr Ramsey stopped acyclovir, picc line for IV abx Current Visit: Yes (2) Altered mental status Status: Acute Assessment and plan: Due to viral meningitis, continue Rocephin and acyclovir IV, PICC line today, UTI also contributing await identity of 2 types of gram negative rods Current Visit: Yes (3) Leukocytosis Status: Acute Assessment and plan: due to viral meningitis and uti Current Visit: Yes (4) UTI (urinary tract infection) Status: Acute Assessment and plan: Growing two types of gram negative rods, continue Rocephin Current Visit: Yes (5) Diabetes Status: Acute Assessment and plan: BS better, continue metformin and glyburide Current Visit: Yes (6) Frequent falls Status: Acute Assessment and plan: PT and OT, consult [facility] for rehab, spinal stenosis at L4-L5, most likely due to spinal meningitis Current Visit: Yes Hospitalist: Subjective Interval history: Per review of CSF fluid patient has aseptic meningitis most likely viral meningitis. Dr. Bachrecommends adding Seroquel and discontinuing the ampicillin and vancomycin but continuing the Rocephin and acyclovir at this time. Patient was sleeping on entering the room. I updated her daughter on all lab and imaging results. Exam - Constitutional Vitals: Period Temp Pulse Resp BP Sys/Hartmann Pulse Ox Last 24 Hr 96.8 F-99.7 F 72-94 16-20 127-169/68-97 93-98 Exam: Heart Rate-[RRR] Lungs-[CTAB] GI-[+bs soft, NT] Ext-[no edema] Neuro sleeping cannot assess psych [sleeping] General [no acute distress] Results - Labs CBC & BMP: 11/06/16 06:27 11/06/16 06:27 Lab Results: I have reviewed the past 24 hour labs Labs: CSF fluid consistent with aseptic meningitis also none is viral meningitis. CSF fluid no growth, blood cultures 2 negative no growth Specialty Discharge - Follow Up or Referrals Follow up with: Donna Sawant MD [Physician] - 11/18/16 1:15 pm (sleep center will mail out some new admit papers and need to bring them with her to her appointment)
--- NOTE | 2016-11-06 14:28 | Post Interventional Procedure ---
Pre-op diagnosis: Meningitis Post-op diagnosis: same Procedure: PICC LUE Flouroscopy: 0.1 min Radiologist: Rakesh Saravia Anesthesia: local Specimens: none sent Estimated blood loss: none Complications: none Condition: stable
--- NOTE | 2016-11-06 15:41 | Interventional Radiology Rpt ---
IR PICC line insertion, US guide vascular access Indication: Meningitis. Long-term IV antibiotics necessary. PICC LINE Description: A formal timeout was performed. Maximum sterile barrier technique was used. Sonographic evaluation of the left upper extremity demonstrates patent and compressible cephalic vein. The upper arm was prepped and draped in sterile fashion. 3 cc 1% lidocaine was administered subcutaneously. Under sonographic guidance, a micropuncture needle was advanced into the vein. A captured sonographic image documents the position of the needle. Needle was exchanged over a wire for a peel-away sheath. A dual lumen power PICC, cut to 43 cm, was advanced over the wire until the tip was at the RA-SVC junction. The position of the catheter was confirmed with fluoroscopic guidance and an image stored in PACS. The wire and sheath were removed. Both ports of the PICC were aspirated and flushed with heparinized saline. The device was secured with a StatLock. Fluoroscopy: 0.1 minute, one captured image. Impression: PICC line ready for immediate use. Routine catheter care. PROCEDURE INTERPRETED AT [facility] DEPARTMENT OF RADIOLOGY Final Report Signed by: Rakesh Saravia M.D.
[2016-11-06] MEDS: QUEtiapine 25 MG TABLET PO SCH (21:37)
[2016-11-06] MEDS: SIMVASTATIN 20 MG TABLET PO SCH (21:37)
[2016-11-06] MEDS: ACETAMINOPHEN 325 MG TABLET PO PRN (23:36)
[2016-11-07] MEDS: ALBUTEROL 2.5 MG/3 ML NEB RESP TX SCH ×4 (00:11→19:53)
[2016-11-07] MEDS: VANCOMYCIN INJ 2,500 MG in SODIUM CHLORIDE 0.9% 500 ML IV SCH (03:26)
[2016-11-07] MEDS: ACYCLOVIR IV SCH ×3 (03:27→22:12)
[2016-11-07] MEDS: SODIUM CHLORIDE 0.9% IV SCH ×3 (03:27→22:12)
[2016-11-07 06:00] LABS: Basophils # 0.2 10*3/uL (0.0-0.2); Basophils % 1.2 % (0.0-0.8); Eosinophils # 0.3 10*3/uL (0.0-0.87); Hematocrit 34.6 VOL% (35.7-47.0); Hemoglobin 11.6 GM/DL (12.0-16.0); Immature Granulocytes % 0.3 %; Immature Granulocytes Absolute 0.04 #; Lymphocytes # 2.7 10*3/uL (1.4-4.0); Lymphocytes % 20.8 % (21.3-54.2); Mean Corpuscular HGB Conc 33.5 GM/DL (32-36); Mean Corpuscular Hemoglobin 29 PG (27-34); Mean Corpuscular Volume 87.8 FL (87-102); Mean Platelet Volume 10.5 FL (9.6-12.0); Monocytes # 1.2 10*3/uL (0.11-0.8); Neutrophils # 8.7 10*3/uL (1.4-7.4); Neutrophils % 66.7 % (38.7-73.9); Platelet Count 236 T/CUMM (130-400); Red Blood Count 3.94 MC/CUMM (3.8-5.5); Red Cell Distribution Width 12.5 % (9.3-17.3)
[2016-11-07 06:29] LABS: Albumin 2.9 G/DL (3.4-5.0); Bilirubin,Total 0.9 MG/DL (0.2-1.0); Calcium 8.7 MG/DL (8.5-10.1); Osmolality,Calculated 276.7 MOS/KG (273-304); Total Protein 6.1 G/DL (6.4-8.3)
[2016-11-07] MEDS: cefTRIAXone 2,000 MG in SODIUM CHLORIDE 0.9% 100 ML IV SCH ×2 (06:35→17:13)
[2016-11-07] MEDS: INSULIN REGULAR 100 UNIT/ML SUBCUT SCH ×4 (07:46→22:13)
[2016-11-07] MEDS: CYANOCOBALAMIN 500 MCG TABLET PO SCH (08:20)
[2016-11-07] MEDS: MONTELUKAST 10 MG TABLET PO SCH (08:20)
[2016-11-07] MEDS: LISINOPRIL 20 MG TABLET PO SCH (08:20)
[2016-11-07] MEDS: glyBURIDE/METFORMIN 5-500 MG TABLET PO SCH ×3 (08:20→16:14)
[2016-11-07] MEDS: GABAPENTIN 300 MG CAPSULE PO SCH ×3 (08:20→22:12)
[2016-11-07] MEDS: prednisoLONE ACETATE 1% OPH SUSP 5 ML BOTTLE BOTH EYES SCH ×5 (08:21→23:10)
[2016-11-07] MEDS: DESITIN 4OZ/NYSTATIN 15 GRAM MIXTURE PASTE TOP SCH ×2 (08:21→23:09)
[2016-11-07] MEDS: CARVEDILOL 6.25 MG TABLET PO SCH ×2 (08:27→22:11)
--- NOTE | 2016-11-07 09:10 | XRay Report ---
History: Meningitis. Reconfirm PICC line placement Date: 11/07/2016 at 8:22 AM Study: Chest x-ray single view portable Comparison exam: No previous chest x-ray available The left PICC line is positioned with its tip over the region of superior vena cava. This has been retracted roughly 2 cm, but is still thought to be in grossly satisfactory position. There is cardiomegaly. There is no mediastinal mass. The pulmonary vasculature is not engorged. There is no gross pleural effusion. There is mild thoracic spondylosis. Impression: Slight retraction of the left PICC line since the previous study, though the PICC line is still thought to be in generally satisfactory position. Cardiomegaly PROCEDURE INTERPRETED AT [facility] DEPARTMENT OF RADIOLOGY Final Report Signed by: Dr. Ileana Peoples
--- NOTE | 2016-11-07 11:19 | Hospitalist Progress Note ---
Assessment and Plan (1) Viral meningitis Status: Acute Assessment and plan: cont acyclovir and rocephin. PICC line placed yesterday we will stop vancomycin today. CSF cultures negative no growth 48 hours Current Visit: Yes (2) Altered mental status Status: Acute Assessment and plan: Due to viral meningitis, continue Rocephin and acyclovir IV, UTI also contributing to her confusion. Current Visit: Yes (3) Leukocytosis Status: Acute Assessment and plan: White count improving continue Rocephin and acyclovir Current Visit: Yes (4) UTI (urinary tract infection) Status: Acute Assessment and plan: Growing two types of E. coli, continue Rocephin Current Visit: Yes (5) Diabetes Status: Acute Assessment and plan: BS better, continue metformin and glyburide Current Visit: Yes (6) Frequent falls Status: Acute Assessment and plan: PT and OT, consult [facility] for rehab, spinal stenosis at L4-L5, Current Visit: Yes Hospitalist: Subjective Interval history: Patient is confused and pulling at picc line. Requesting something for a bowel movement. Nursing reports she still having very odd behavior. Exam - Constitutional Vitals: Period Temp Pulse Resp BP Sys/Hartmann Pulse Ox Last 24 Hr 96.8 F-102 F 64-103 16-20 130-167/59-85 93-100 Exam: Heart Rate-[RRR] Lungs-[CTAB] GI-[+bs soft, NT] Ext-[no edema] Neuro awake and alert and moving all extremities psych [normal mood and flat affect ] General [no acute distress] Results - Labs CBC & BMP: 11/07/16 04:15 11/07/16 04:15 Lab Results: I have reviewed the past 24 hour labs Labs: Urine culture growing E. coli 2 different types of E. coli both sensitive to Rocephin. CSF cultures negative no growth we will stop vancomycin today. Specialty Discharge - Follow Up or Referrals Follow up with: Donna Sawant MD [Physician] - 11/18/16 1:15 pm (sleep center will mail out some new admit papers and need to bring them with her to her appointment)
[2016-11-07] MEDS: BISACODYL 5 MG TABLET PO PRN (12:06)
[2016-11-07] MEDS: SIMVASTATIN 20 MG TABLET PO SCH (22:11)
[2016-11-07] MEDS: QUEtiapine 25 MG TABLET PO SCH (22:12)
[2016-11-07] MEDS: DEXTROSE 50% 25 GM/50 ML VIAL IV PRN (22:13)
[2016-11-08] MEDS: ALBUTEROL 2.5 MG/3 ML NEB RESP TX SCH ×4 (00:22→19:25)
[2016-11-08] MEDS: SODIUM CHLORIDE 0.9% IV SCH ×3 (04:00→20:32)
[2016-11-08] MEDS: ACYCLOVIR IV SCH ×3 (04:00→20:32)
[2016-11-08] MEDS: cefTRIAXone 2,000 MG in SODIUM CHLORIDE 0.9% 100 ML IV SCH ×2 (07:00→17:27)
[2016-11-08] MEDS: INSULIN REGULAR 100 UNIT/ML SUBCUT SCH ×4 (07:33→20:40)
[2016-11-08 07:35] LABS: Albumin 2.9 G/DL (3.4-5.0); Bilirubin,Total 0.7 MG/DL (0.2-1.0); Osmolality,Calculated 277.7 MOS/KG (273-304); Potassium 3.7 MMOL/L (3.5-5.1); Total Protein 6.4 G/DL (6.4-8.3)
[2016-11-08] MEDS: GABAPENTIN 300 MG CAPSULE PO SCH ×3 (08:29→20:39)
[2016-11-08] MEDS: LISINOPRIL 20 MG TABLET PO SCH (08:29)
[2016-11-08] MEDS: CARVEDILOL 6.25 MG TABLET PO SCH ×2 (08:29→20:35)
[2016-11-08] MEDS: MONTELUKAST 10 MG TABLET PO SCH (08:29)
[2016-11-08] MEDS: CYANOCOBALAMIN 500 MCG TABLET PO SCH (08:29)
[2016-11-08] MEDS: glyBURIDE/METFORMIN 5-500 MG TABLET PO SCH ×3 (08:29→16:08)
[2016-11-08] MEDS: DESITIN 4OZ/NYSTATIN 15 GRAM MIXTURE PASTE TOP SCH ×2 (08:30→20:40)
[2016-11-08] MEDS: prednisoLONE ACETATE 1% OPH SUSP 5 ML BOTTLE BOTH EYES SCH ×5 (08:30→20:40)
[2016-11-08 10:53] LABS: Specimen Source CSF
--- NOTE | 2016-11-08 14:55 | Hospitalist Progress Note ---
Assessment and Plan (1) Viral meningitis Status: Acute Assessment and plan: cont acyclovir and rocephin. PICC line placed yesterday, still confused Current Visit: Yes (2) Altered mental status Status: Acute Assessment and plan: Due to viral meningitis, continue Rocephin and acyclovir IV, UTI also contributing to her confusion. Current Visit: Yes (3) Leukocytosis Status: Acute Assessment and plan: White count improving continue Rocephin and acyclovir Current Visit: Yes (4) UTI (urinary tract infection) Status: Acute Assessment and plan: Growing two types of E. coli, continue Rocephin Current Visit: Yes (5) Diabetes Status: Acute Assessment and plan: BS too low will decrease Metformin/glyburide Current Visit: Yes (6) Frequent falls Status: Acute Assessment and plan: PT and OT, [facility] and IV abx , spinal stenosis at L4-L5, Current Visit: Yes Hospitalist: Subjective Interval history: Patient still very confused. She pulls that PICC line at times. Patient just needs more time. Would be able to go to [facility] on Wednesday on IV antibiotics. Exam - Constitutional Vitals: Period Temp Pulse Resp BP Sys/Hartmann Pulse Ox Last 24 Hr 97.5 F-99.2 F 70-95 17-20 119-172/55-93 94-99 Exam: Heart Rate-[RRR] Lungs-[CTAB] GI-[+bs soft, NT] Ext-[no edema] Neuro alert but confused, moving all extremities psych [pleasant mood and affect] General [no acute distress] Results - Labs CBC & BMP: 11/07/16 04:15 11/08/16 06:32 Lab Results: I have reviewed the past 24 hour labs Labs: CSF culture negative, blood cultures 2 negative Specialty Discharge - Follow Up or Referrals Follow up with: Donna Sawant MD [Physician] - 11/18/16 1:15 pm (sleep center will mail out some new admit papers and need to bring them with her to her appointment)
[2016-11-08] MEDS: QUEtiapine 25 MG TABLET PO SCH (20:35)
[2016-11-08] MEDS: ACETAMINOPHEN 325 MG TABLET PO PRN (20:35)
[2016-11-08] MEDS: SIMVASTATIN 20 MG TABLET PO SCH (20:39)
[2016-11-09] MEDS: ALBUTEROL 2.5 MG/3 ML NEB RESP TX SCH ×4 (00:12→19:24)
[2016-11-09] MEDS: SODIUM CHLORIDE 0.9% IV SCH ×3 (03:13→21:21)
[2016-11-09] MEDS: ACYCLOVIR IV SCH ×3 (03:13→21:21)
[2016-11-09] MEDS: cefTRIAXone 2,000 MG in SODIUM CHLORIDE 0.9% 100 ML IV SCH ×2 (05:04→17:00)
--- NOTE | 2016-11-09 08:40 | Hospitalist Progress Note ---
Assessment and Plan (1) Diabetes Status: Acute Assessment and plan: Continue accuchecks and sliding scale coverage as previously ordered. Current Visit: Yes (2) Viral meningitis Status: Acute Assessment and plan: Continue antiviral and contact precautions as previously ordered. Current Visit: Yes Hospitalist: Subjective Interval history: Patient seen and examined. Remains confused. No significant overnight issues reported per staff. [facility] Exam - Constitutional Vitals: Period Temp Pulse Resp BP Sys/Hartmann Pulse Ox Last 24 Hr 97.6 F-99.1 F 70-88 18-20 143-167/68-93 93-99 General appearance: normal weight - Head Head exam: Present: normal inspection - Eye Eye exam: Present: EOMI. Absent: periorbital swelling, scleral icterus Pupils: Present: LIVIA - ENT ENT exam: Present: normal exam - Neck Neck exam: Present: normal inspection. Absent: lymphadenopathy, meningismus, tenderness, thyromegaly - Respiratory Respiratory exam: Present: clear to auscultation bilaterally - Cardiovascular Cardiovascular exam: Present: regular rate and rhythm. Absent: carotid bruit, diastolic murmur, JVD, rubs, systolic murmur - GI/Abdominal GI/Abdominal exam: Present: normal bowel sounds, soft. Absent: firm, guarding, mass, rebound - Extremities Exam Extremities exam: Present: normal inspection, full ROM - Back Exam Back exam: Present: normal inspection - Neurological Exam Neurological exam: Present: alert (Profound confusion), other (Unable to follow commands) - Psychiatric Psychiatric exam: Present: normal affect - Skin Skin exam: Present: normal color Results - Labs CBC & BMP: 11/07/16 04:15 11/08/16 06:32 Lab Results: I have reviewed the past 24 hour labs Specialty Discharge - Follow Up or Referrals Follow up with: Donna Sawant MD [Physician] - 11/18/16 1:15 pm (sleep center will mail out some new admit papers and need to bring them with her to her appointment)
[2016-11-09] MEDS: INSULIN REGULAR 100 UNIT/ML SUBCUT SCH ×4 (10:12→21:21)
[2016-11-09] MEDS: glyBURIDE/METFORMIN 5-500 MG TABLET PO SCH ×2 (10:16→16:51)
[2016-11-09] MEDS: MONTELUKAST 10 MG TABLET PO SCH (10:16)
[2016-11-09] MEDS: CARVEDILOL 6.25 MG TABLET PO SCH ×2 (10:16→21:22)
[2016-11-09] MEDS: CYANOCOBALAMIN 500 MCG TABLET PO SCH (10:16)
[2016-11-09] MEDS: LISINOPRIL 20 MG TABLET PO SCH (10:17)
[2016-11-09] MEDS: GABAPENTIN 300 MG CAPSULE PO SCH ×3 (10:17→21:22)
[2016-11-09] MEDS: DESITIN 4OZ/NYSTATIN 15 GRAM MIXTURE PASTE TOP SCH ×2 (10:17→21:24)
[2016-11-09] MEDS: prednisoLONE ACETATE 1% OPH SUSP 5 ML BOTTLE BOTH EYES SCH ×4 (10:17→21:24)
--- NOTE | 2016-11-09 14:13 | Neurology Progress Note ---
Neurology - PN : Subjective Interval history: Patient is a still quite confused and disoriented. She is very delirious. WBC counts are getting better. Exam (Progress Note) - Constitutional Vitals: Period Temp Pulse Resp BP Sys/Hartmann Pulse Ox Last 24 Hr 97.6 F-99.1 F 70-79 18-20 143-176/68-92 93-99 Exam: GENERAL: Patient is in no acute distress. NECK: Neck is supple. There is no JVD. No carotid bruits present. No thyroid masses. CVS: First and second heart sounds are normal. There is no S3 present. Regular rate and rhythm. RESPIRATORY: Lungs are clear to auscultation without any rales or rhonchi. ABDOMEN: Soft and non-tender. Bowel sounds are present. There is no hepatosplenomegaly. EXT: There is no palpable edema. Peripheral pulses are present. Skin: No rashes Central Nervous system: General: Alert, awake Speech: Fluent Comprehension: Intact and normal Facial expressions: Normal Cranial Nerves: CN1/Olfactory: Normal CN II/ Optic: Normal, Visual Yoon unreliable CN III, and : LIVIA & EOMI CN V: Normal & intact CN VII: face is symmetric CNVIII: Normal CN XI/X/XI/XII: Intact and Normal Motor: Bulk and Tone is normal. Strength in the right 3/5 Strength in the left 3/5 Sensory: Decreased for all the modalities of PP, LT and temp sense Reflexes: 1+ and symmetrical Cerebellar function: Normal finger to nose and heel to stuart testing. Toes: Equivocal Gait: not tested Results - Labs CBC & BMP: 11/07/16 04:15 11/08/16 06:32 Assessment and Plan (1) Debility Status: Acute Assessment and plan: This is multifactorial. Current Visit: Yes (2) Viral meningitis Status: Acute Assessment and plan: Cont acyclovir Continue Rocephin Add Seroquel 25 mg po hs Start PT and OT Repeat MRI of the brain CBC CMP She is not a good candidate for acute rehab at this time May need a swing bed Current Visit: Yes Specialty Discharge - Follow Up or Referrals Follow up with: Donna Sawant MD [Physician] - 11/18/16 1:15 pm (sleep center will mail out some new admit papers and need to bring them with her to her appointment)
[2016-11-09] MEDS ORDERED: LORazepam 2 MG/1 ML VIAL IV ONE (14:20)
[2016-11-09 14:21] LABS: IgG Index, CSF 1.5 (<=0.85); IgG/Albumin Ratio, CSF 0.57 (<=0.21); Synthesis Rate, CSF 79.29 mg/24 h (<=12)
[2016-11-09 15:06] LABS: Basophils # 0.1 10*3/uL (0.0-0.2); Basophils % 0.7 % (0.0-0.8); Eosinophils # 0.1 10*3/uL (0.0-0.87); Eosinophils % 0.4 % (0.00-10.9); Hematocrit 36.5 VOL% (35.7-47.0); Hemoglobin 12.7 GM/DL (12.0-16.0); Immature Granulocytes % 0.4 %; Immature Granulocytes Absolute 0.07 #; Lymphocytes # 2.2 10*3/uL (1.4-4.0); Lymphocytes % 13.8 % (21.3-54.2); Mean Corpuscular HGB Conc 34.8 GM/DL (32-36); Mean Corpuscular Hemoglobin 30 PG (27-34); Mean Corpuscular Volume 86.3 FL (87-102); Mean Platelet Volume 9.9 FL (9.6-12.0); Monocytes # 1.1 10*3/uL (0.11-0.8); Monocytes % 6.6 % (1.7-12.7); Neutrophils # 12.7 10*3/uL (1.4-7.4); Neutrophils % 78.1 % (38.7-73.9); Platelet Count 231 T/CUMM (130-400); Red Blood Count 4.23 MC/CUMM (3.8-5.5); Red Cell Distribution Width 12.4 % (9.3-17.3); White Blood Count 16.2 T/CUMM (4-12)
[2016-11-09 15:44] LABS: Calcium 8.7 MG/DL (8.5-10.1); Osmolality,Calculated 278.5 MOS/KG (273-304); Potassium 3.6 MMOL/L (3.5-5.1)
[2016-11-09] MEDS: QUEtiapine 25 MG TABLET PO SCH (21:22)
[2016-11-09] MEDS: SIMVASTATIN 20 MG TABLET PO SCH (21:22)
[2016-11-10] MEDS: ALBUTEROL 2.5 MG/3 ML NEB RESP TX SCH ×4 (00:25→20:12)
[2016-11-10] MEDS: SODIUM CHLORIDE 0.9% IV SCH ×3 (04:52→21:05)
[2016-11-10] MEDS: ACYCLOVIR IV SCH ×3 (04:52→21:05)
[2016-11-10] MEDS: cefTRIAXone 2,000 MG in SODIUM CHLORIDE 0.9% 100 ML IV SCH ×3 (06:00→17:39)
[2016-11-10] MEDS: CARVEDILOL 6.25 MG TABLET PO SCH ×2 (09:05→21:06)
[2016-11-10] MEDS: CYANOCOBALAMIN 500 MCG TABLET PO SCH (09:05)
[2016-11-10] MEDS: LISINOPRIL 20 MG TABLET PO SCH (09:06)
[2016-11-10] MEDS: INSULIN REGULAR 100 UNIT/ML SUBCUT SCH ×4 (09:06→23:11)
[2016-11-10] MEDS: MONTELUKAST 10 MG TABLET PO SCH (09:06)
[2016-11-10] MEDS: prednisoLONE ACETATE 1% OPH SUSP 5 ML BOTTLE BOTH EYES SCH ×4 (09:06→21:08)
[2016-11-10] MEDS: GABAPENTIN 300 MG CAPSULE PO SCH ×3 (09:06→21:06)
[2016-11-10] MEDS: glyBURIDE/METFORMIN 5-500 MG TABLET PO SCH ×2 (09:06→16:52)
[2016-11-10] MEDS: DESITIN 4OZ/NYSTATIN 15 GRAM MIXTURE PASTE TOP SCH ×2 (09:07→21:08)
--- NOTE | 2016-11-10 14:17 | Neurology Progress Note ---
Neurology - PN : Subjective Interval history: Patient continue to remain same. She is still very delirious and confused. We could not get a repeat MRI done because of poor cooperation from the patient. Patient had negative herpes PCR testing in the first LP. Exam (Progress Note) - Constitutional Vitals: Period Temp Pulse Resp BP Sys/Hartmann Pulse Ox Last 24 Hr 97.2 F-100.6 F 68-98 16-20 122-159/61-94 90-98 Exam: GENERAL: Patient is in no acute distress. NECK: Neck is supple. There is no JVD. No carotid bruits present. No thyroid masses. CVS: First and second heart sounds are normal. There is no S3 present. Regular rate and rhythm. RESPIRATORY: Lungs are clear to auscultation without any rales or rhonchi. ABDOMEN: Soft and non-tender. Bowel sounds are present. There is no hepatosplenomegaly. EXT: There is no palpable edema. Peripheral pulses are present. Skin: No rashes Central Nervous system: General: Alert, awake Speech: Fluent Comprehension: Intact and normal Facial expressions: Normal Cranial Nerves: CN1/Olfactory: Normal CN II/ Optic: Normal, Visual Yoon unreliable CN III, and : LIVIA & EOMI CN V: Normal & intact CN VII: face is symmetric CNVIII: Normal CN XI/X/XI/XII: Intact and Normal Motor: Bulk and Tone is normal. Strength in the right 3/5 Strength in the left 3/5 Sensory: Decreased for all the modalities of PP, LT and temp sense Reflexes: 1+ and symmetrical Cerebellar function: Normal finger to nose and heel to stuart testing. Toes: Equivocal Gait: not tested Results - Labs CBC & BMP: 11/09/16 14:53 11/09/16 14:45 Assessment and Plan (1) Debility Status: Acute Assessment and plan: This is multifactorial. Current Visit: Yes (2) Viral meningitis Status: Acute Assessment and plan: Cont acyclovir Continue Rocephin Repeat LP in the morning Current Visit: Yes Specialty Discharge - Follow Up or Referrals Follow up with: Donna Sawant MD [Physician] - 11/18/16 1:15 pm (sleep center will mail out some new admit papers and need to bring them with her to her appointment)
--- NOTE | 2016-11-10 15:24 | Hospitalist Progress Note ---
Assessment and Plan (1) Viral meningitis Status: Acute Assessment and plan: 1)viral meningitis- on acyclovir and ceftriaxone. repeat LP today. Delirium persists. 2)DM- accuchecks well controlled. on glyburide/metformin 3)morbid obesity 4)UTI- 2 bacteria, sensitive to ceftriaxone and low colony counts. 5)ID- meningitis, UTI, low grade temp last night, WBC up a little. recheck in am. 6)dispo- probably needs LTAC or swing bed or [facility]. does not meet requirements for inpatient acute rehab. Current Visit: Yes (2) Diabetes Status: Acute Current Visit: Yes (3) Debility Status: Acute Current Visit: Yes (4) Unspecified sleep apnea Status: Acute Current Visit: Yes (5) Obesity, unspecified Status: Acute Current Visit: Yes Hospitalist: Subjective Interval history: Mrs Anderson was pleasant and knew her name and the year this morning but not where she was. Dr Ramsey has ordered a repeat LP today. Could not do MRI because she was licking the scanner. Exam - Constitutional Vitals: Period Temp Pulse Resp BP Sys/Hartmann Pulse Ox Last 24 Hr 97.2 F-100.6 F 68-98 16-20 122-159/61-94 90-98 General appearance: no acute distress, morbidly obese - Head Head exam: Present: normocephalic, atraumatic - Eye Eye exam: Present: EOMI. Absent: scleral icterus - Respiratory Respiratory exam: Present: clear to auscultation bilaterally - Cardiovascular Cardiovascular exam: Present: regular rate and rhythm - GI/Abdominal GI/Abdominal exam: Present: normal bowel sounds, soft. Absent: tenderness - Extremities Exam Extremities exam: Absent: edema - Neurological Exam Neurological exam: Present: alert, oriented X3 Results - Labs CBC & BMP: 11/09/16 14:53 11/09/16 14:45 Lab Results: I have reviewed the past 24 hour labs Specialty Discharge - Follow Up or Referrals Follow up with: Donna Sawant MD [Physician] - 11/18/16 1:15 pm (sleep center will mail out some new admit papers and need to bring them with her to her appointment)
[2016-11-10] MEDS: SIMVASTATIN 20 MG TABLET PO SCH (21:06)
[2016-11-10] MEDS: QUEtiapine 25 MG TABLET PO SCH (21:06)
[2016-11-11] MEDS: ALBUTEROL 2.5 MG/3 ML NEB RESP TX SCH ×4 (00:49→19:57)
[2016-11-11] MEDS: ACYCLOVIR IV SCH ×3 (04:26→20:29)
[2016-11-11] MEDS: SODIUM CHLORIDE 0.9% IV SCH ×3 (04:26→20:29)
[2016-11-11] MEDS: cefTRIAXone 2,000 MG in SODIUM CHLORIDE 0.9% 100 ML IV SCH ×2 (06:11→19:22)
--- NOTE | 2016-11-11 08:26 | Hospitalist Progress Note ---
Assessment and Plan (1) Diabetes Status: Acute Assessment and plan: Continue accuchecks and sliding scale coverage as previously ordered. Current Visit: Yes (2) Viral meningitis Status: Acute Assessment and plan: Continue antiviral and contact precautions as previously ordered. Current Visit: Yes Hospitalist: Subjective Interval history: Patient seen and examined. No significant overnight events reported per staff. Profound confusion remains. Exam - Constitutional Vitals: Period Temp Pulse Resp BP Sys/Hartmann Pulse Ox Last 24 Hr 97.8 F-100.8 F 65-94 16-20 138-169/70-87 90-99 General appearance: normal weight - Head Head exam: Present: normal inspection, normocephalic, atraumatic. Absent: abrasion, contusion - Eye Eye exam: Present: EOMI. Absent: periorbital swelling, scleral icterus Pupils: Present: LIVIA, normal accommodation - ENT ENT exam: Present: normal exam - Neck Neck exam: Present: normal inspection. Absent: lymphadenopathy, meningismus, tenderness, thyromegaly - Respiratory Respiratory exam: Present: decreased breath sounds. Absent: rales, rhonchi, stridor, wheezes - Cardiovascular Cardiovascular exam: Present: regular rate and rhythm, tachycardia. Absent: carotid bruit, diastolic murmur, gallop, JVD, rubs, systolic murmur - GI/Abdominal GI/Abdominal exam: Present: normal bowel sounds, soft. Absent: firm, guarding, tenderness - Extremities Exam Extremities exam: Present: normal inspection - Back Exam Back exam: Present: normal inspection - Neurological Exam Neurological exam: Present: alert, altered - Psychiatric Psychiatric exam: Present: normal affect - Skin Skin exam: Present: pallor Results - Labs CBC & BMP: 11/09/16 14:53 11/09/16 14:45 Lab Results: I have reviewed the past 24 hour labs Specialty Discharge - Follow Up or Referrals Follow up with: Donna Sawant MD [Physician] - 11/18/16 1:15 pm (sleep center will mail out some new admit papers and need to bring them with her to her appointment)
[2016-11-11 10:51] LABS: Lymphocytes,CSF 42 %; Monocytes,CSF 3 %; Neutrophils,CSF 55 %; Red Blood Cell,CSF 6821 C/CUMM; White Blood Cell,CSF 2070 C/CUMM
[2016-11-11 10:52] LABS: Appearance,CSF Hazy
--- NOTE | 2016-11-11 11:44 | Post Interventional Procedure ---
Pre-op diagnosis: confusion Post-op diagnosis: same Procedure: lumbar puncture Contrast: none Flouroscopy: 0.8 min Radiologist: Santino Elliott Anesthesia: local Specimens: other (10 mL cloudy CSF sent) Estimated blood loss: none Complications: none Condition: stable Description/Findings: opening pressure 18 cm H2O Assessment and Plan - Time spent with patient Time spent with patient: Less than 30 minutes
--- NOTE | 2016-11-11 11:51 | Interventional Radiology Rpt ---
Procedure: IR lumbar puncture diagnostic Clinical history: 61-year-old female with continued confusion. Procedure: Informed consent was obtained prior to procedure. Formal timeout was performed. Maximum sterile barrier technique was employed. The patient was placed prone on the fluoroscopy table. The low back was prepped and draped in a sterile fashion. A midline lumbar puncture was then performed at the L2-L3 interspace using a 20-gauge spinal needle. Fluoroscopic guidance was used and a captured image documents the needle position. An opening pressure of 18 cm water was obtained. Subsequently, 10 milliliters of slightly cloudy CSF was withdrawn and sent to laboratory. The spinal needle was removed and a bandage placed the puncture site. Fluoroscopy time: 0.8 minutes. Consultations: None. Impression: Technically successful diagnostic lumbar puncture as described. PROCEDURE INTERPRETED AT [facility] DEPARTMENT OF RADIOLOGY Final Report Signed by: Santino Elliott
[2016-11-11 12:21] LABS: Epstein-Barr Virus Result Negative (Negative); Epstein-Barr Virus Source CSF
[2016-11-11] MEDS: GABAPENTIN 300 MG CAPSULE PO SCH ×3 (13:37→21:32)
[2016-11-11] MEDS: CARVEDILOL 6.25 MG TABLET PO SCH ×2 (13:37→21:32)
[2016-11-11] MEDS: MONTELUKAST 10 MG TABLET PO SCH (13:37)
[2016-11-11] MEDS: prednisoLONE ACETATE 1% OPH SUSP 5 ML BOTTLE BOTH EYES SCH ×4 (13:38→21:33)
[2016-11-11] MEDS: LISINOPRIL 20 MG TABLET PO SCH (13:38)
[2016-11-11] MEDS: CYANOCOBALAMIN 500 MCG TABLET PO SCH (13:38)
[2016-11-11] MEDS: glyBURIDE/METFORMIN 5-500 MG TABLET PO SCH ×2 (13:38→19:13)
[2016-11-11] MEDS: DESITIN 4OZ/NYSTATIN 15 GRAM MIXTURE PASTE TOP SCH ×2 (13:39→21:33)
[2016-11-11] MEDS: INSULIN REGULAR 100 UNIT/ML SUBCUT SCH ×3 (13:45→21:32)
[2016-11-11] MEDS: ERGOCALCIFEROL 50,000 UNIT CAPSULE PO SCH (13:49)
--- NOTE | 2016-11-11 15:14 | Neurology Progress Note ---
Neurology - PN : Subjective Interval history: Patient continued to remain same. She is very delirious and confused. Repeat CSF noted. It has gotten worse. WBC count is more than 2000. total protein is 119. Glucose is 24. And RBC is more than 6000. Exam (Progress Note) - Constitutional Vitals: Period Temp Pulse Resp BP Sys/Hartmann Pulse Ox Last 24 Hr 97.0 F-100.8 F 63-83 18-21 138-169/70-92 94-99 Exam: GENERAL: Patient is in no acute distress. NECK: Neck is supple. There is no JVD. No carotid bruits present. No thyroid masses. CVS: First and second heart sounds are normal. There is no S3 present. Regular rate and rhythm. RESPIRATORY: Lungs are clear to auscultation without any rales or rhonchi. ABDOMEN: Soft and non-tender. Bowel sounds are present. There is no hepatosplenomegaly. EXT: There is no palpable edema. Peripheral pulses are present. Skin: No rashes Central Nervous system: General: Alert, awake Speech: Fluent Comprehension: Intact and normal Facial expressions: Normal Cranial Nerves: CN1/Olfactory: Normal CN II/ Optic: Normal, Visual Yoon unreliable CN III, and : LIVIA & EOMI CN V: Normal & intact CN VII: face is symmetric CNVIII: Normal CN XI/X/XI/XII: Intact and Normal Motor: Bulk and Tone is normal. Strength in the right 3/5 Strength in the left 3/5 Sensory: Decreased for all the modalities of PP, LT and temp sense Reflexes: 1+ and symmetrical Cerebellar function: Normal finger to nose and heel to stuart testing. Toes: Equivocal Gait: not tested Results - Labs CBC & BMP: 11/09/16 14:53 11/09/16 14:45 Assessment and Plan (1) Debility Status: Acute Assessment and plan: This is multifactorial. Current Visit: Yes (2) Viral meningitis Status: Acute Assessment and plan: Stop acyclovir Start anti-TB medications Start antifungal medication Started Decadron We will try to transfer her to [facility] Perform EEG Current Visit: Yes Specialty Discharge - Follow Up or Referrals Follow up with: Donna Sawant MD [Physician] - 11/18/16 1:15 pm (sleep center will mail out some new admit papers and need to bring them with her to her appointment)
[2016-11-11] MEDS ORDERED: DEXTROSE 5% IV ONE (16:00)
[2016-11-11] MEDS ORDERED: AMPHOTERICIN B IV ONE (16:00)
[2016-11-11 16:26] LABS: West Nile Virus Ab, IgG, CSF Negative (Negative); West Nile Virus Ab, IgM, CSF Negative (Negative)
--- NOTE | 2016-11-11 16:51 | Event Note ---
I have spoken to her daughter this afternoon to review the results of the repeat LP. She has already spoken to Dr Ramsey who explained the change in the treatment plan and our plan to transfer her to [facility]. [facility] is full without beds but [facility] has faxed the patient's records to them and will be in touch with them tomorrow to see if they have a bed. They offered telehealth and we are finding out if we have the capability to use that service.
[2016-11-11] MEDS: ISONIAZID 300 MG TABLET PO SCH (17:00)
[2016-11-11] MEDS: ETHAMBUTOL 400 MG TABLET PO SCH (17:01)
[2016-11-11] MEDS: RIFAMPIN 300 MG CAPSULE PO SCH (17:01)
[2016-11-11] MEDS: PYRAZINAMIDE 500 MG TABLET PO SCH (19:23)
[2016-11-11] MEDS: AMPHOTERICIN B IV SCH (20:28)
[2016-11-11] MEDS: DEXTROSE 5% IV SCH (20:28)
[2016-11-11] MEDS ORDERED: DEXAMETHASONE 6 MG TABLET PO SCH (21:00)
[2016-11-11] MEDS: DEXAMETHASONE 4 MG TABLET PO SCH (21:31)
[2016-11-11] MEDS: QUEtiapine 25 MG TABLET PO SCH (21:32)
[2016-11-11] MEDS: SIMVASTATIN 20 MG TABLET PO SCH (21:32)
[2016-11-12] MEDS: ALBUTEROL 2.5 MG/3 ML NEB RESP TX SCH ×4 (00:25→19:29)
[2016-11-12] MEDS: prednisoLONE ACETATE 1% OPH SUSP 5 ML BOTTLE BOTH EYES SCH ×4 (03:58→21:11)
[2016-11-12] MEDS: ACYCLOVIR IV SCH ×2 (04:18→11:01)
[2016-11-12] MEDS: SODIUM CHLORIDE 0.9% IV SCH ×2 (04:18→11:01)
[2016-11-12 05:29] LABS: Basophils % 0.1 % (0.0-0.8); Hematocrit 35.4 VOL% (35.7-47.0); Hemoglobin 12.1 GM/DL (12.0-16.0); Immature Granulocytes % 1.4 %; Immature Granulocytes Absolute 0.31 #; Lymphocytes # 0.6 10*3/uL (1.4-4.0); Lymphocytes % 2.5 % (21.3-54.2); Mean Corpuscular HGB Conc 34.2 GM/DL (32-36); Mean Corpuscular Hemoglobin 30 PG (27-34); Mean Corpuscular Volume 87.2 FL (87-102); Monocytes # 0.7 10*3/uL (0.11-0.8); Monocytes % 3.4 % (1.7-12.7); Neutrophils # 20.4 10*3/uL (1.4-7.4); Neutrophils % 92.6 % (38.7-73.9); Platelet Count 187 T/CUMM (130-400); Red Blood Count 4.06 MC/CUMM (3.8-5.5); Red Cell Distribution Width 12.6 % (9.3-17.3)
[2016-11-12 05:56] LABS: Hypochromasia Slight; Lymphocytes 4 % (20-55); Microcytosis 1+; Segmented Neutrophils 91 % (50-85); Total Cells Counted 100
[2016-11-12 05:57] LABS: Platelet Estimate Adequate
[2016-11-12 06:05] LABS: Albumin 2.8 G/DL (3.4-5.0); Bilirubin,Total 1.2 MG/DL (0.2-1.0); Calcium 8.4 MG/DL (8.5-10.1); Osmolality,Calculated 287.3 MOS/KG (273-304); Phosphorous 3.5 MG/DL (2.5-4.9); Potassium 3.4 MMOL/L (3.5-5.1); Total Protein 6.1 G/DL (6.4-8.3)
[2016-11-12] MEDS: cefTRIAXone 2,000 MG in SODIUM CHLORIDE 0.9% 100 ML IV SCH ×2 (06:30→18:05)
[2016-11-12 09:00] LABS: Lymphocytes,CSF 37 %; Monocytes,CSF 1 %; Neutrophils,CSF 62 %
[2016-11-12 09:02] LABS: Appearance,CSF Clear; Red Blood Cell,CSF 929 C/CUMM; White Blood Cell,CSF 1200 C/CUMM
[2016-11-12] MEDS: PYRAZINAMIDE 500 MG TABLET PO SCH (09:05)
[2016-11-12] MEDS: MONTELUKAST 10 MG TABLET PO SCH (09:06)
[2016-11-12] MEDS: DEXAMETHASONE 4 MG TABLET PO SCH ×2 (09:06→21:12)
[2016-11-12] MEDS: RIFAMPIN 300 MG CAPSULE PO SCH (09:07)
[2016-11-12] MEDS: GABAPENTIN 300 MG CAPSULE PO SCH ×3 (09:07→21:12)
[2016-11-12] MEDS: CYANOCOBALAMIN 500 MCG TABLET PO SCH (09:08)
[2016-11-12] MEDS: CARVEDILOL 6.25 MG TABLET PO SCH ×2 (09:09→21:12)
[2016-11-12] MEDS: INSULIN REGULAR 100 UNIT/ML SUBCUT SCH ×4 (09:09→21:12)
[2016-11-12] MEDS: BISACODYL 5 MG TABLET PO PRN (09:09)
[2016-11-12] MEDS: glyBURIDE/METFORMIN 5-500 MG TABLET PO SCH ×2 (09:09→16:49)
[2016-11-12] MEDS: LISINOPRIL 20 MG TABLET PO SCH (09:11)
[2016-11-12] MEDS: DESITIN 4OZ/NYSTATIN 15 GRAM MIXTURE PASTE TOP SCH ×2 (09:19→21:12)
[2016-11-12] MEDS: ISONIAZID 300 MG TABLET PO SCH (09:19)
[2016-11-12] MEDS ORDERED: POTASSIUM CHLORIDE 20 MEQ TABLET PO ONE (09:45)
--- NOTE | 2016-11-12 10:04 | Hospitalist Progress Note ---
Assessment and Plan (1) Viral meningitis Status: Acute Assessment and plan: 1)meningitis- repeat CSF has worsened, and clinically she is worse than on admission. Now on AmphoB and TB meds. repeat cultures pending. HIV pending. We will have SW call tomorrow about whether there are beds available at either place for transfer. only occasional fever, WBC increased to 20. 2)DM- accuchecks controlled. eating a little at each meal 3)morbid obesity 4)UTI- has been treated with a week of ceftriaxone. 5)dispo- [facility] Current Visit: Yes (2) Diabetes Status: Acute Current Visit: Yes (3) Debility Status: Acute Current Visit: Yes (4) Unspecified sleep apnea Status: Acute Current Visit: Yes (5) Obesity, unspecified Status: Acute Current Visit: Yes Hospitalist: Subjective Interval history: Mrs Anderson is about the same neurologically today. Her CSF on repeat LP yesterday showed 1200 WBC and 929 RBC (the first numbers were even higher when run on the first tube). Antigens, crypto, fungal stain, gma stain and culture all remain negative. Glucose has dropped to 24 and protein has increased to 119. All the cultures and tests for viral fungal and bacterial pathogens were negative on the first LP and so was the cytology. MRI on admission was negative also. Dr Ramsey started AmphoB and anti TB drugs. HIV pending. I began transfer queries with [facility] yesterday, but they are on diversion. information has been faxed to them and SW is monitoring the situation. I spent 20 minutes on the phone with [facility] this morning to be told by internal medicine and neuro services that they do not have beds. They did not want the patient's story because they do not keep a list for when their services have beds. ID does not admit at [facility]. Exam - Constitutional Vitals: Period Temp Pulse Resp BP Sys/Hartmann Pulse Ox Last 24 Hr 97.0 F-98.5 F 60-80 17-21 143-160/71-94 92-99 General appearance: no acute distress, morbidly obese - Head Head exam: Present: normocephalic, atraumatic - Eye Eye exam: Present: EOMI. Absent: scleral icterus Pupils: Present: LIVIA - Respiratory Respiratory exam: Present: clear to auscultation bilaterally - Cardiovascular Cardiovascular exam: Present: regular rate and rhythm - GI/Abdominal GI/Abdominal exam: Present: normal bowel sounds, soft. Absent: tenderness - Extremities Exam Extremities exam: Absent: edema - Neurological Exam Neurological exam: Present: alert, other (general weakness). Absent: oriented X3 - Skin Skin exam: Present: warm, dry Results - Labs CBC & BMP: 11/12/16 04:49 11/12/16 04:49 Specialty Discharge - Follow Up or Referrals Follow up with: Donna Sawant MD [Physician] - 11/18/16 1:15 pm (sleep center will mail out some new admit papers and need to bring them with her to her appointment)
[2016-11-12] MEDS: ETHAMBUTOL 400 MG TABLET PO SCH (11:01)
[2016-11-12 12:17] LABS: HIV Antigen/Antibody Result Nonreactive (Nonreactive)
--- NOTE | 2016-11-12 13:44 | Discharge Summary ---
Hospital Course - Hospital Course Hospital Course: Mrs Anderson was admitted on 11/03 with confusion and altered mental status. Neurology was consulted. She ruled out for stroke. An LP was performed and showed meningitis with WBC 1932 (79L 21N), RBC 6, glucose 70 adn protein 84. She was treated with Vanc, amp, and ceftriaxone at meningitis doses. All her infection work up on the initial CSF was negative including AFB at one week, crypto, antigens, culture and gram stain. After a 3 days the vanc and ampicillin were stopped and acyclovir was started with the ceftriaxone. She continues to be confused. There are no focal neuro changes but she is generally very weak. She is alert to conversation but does not know where she is or why. Prior to this illness she was independent and lived alone. Her daughter says she is about like she was when she was admitted. She first noted changes in her mother as much as a month ago. Dr Ramsey ordered a repeat LP yesterday and the fluid remains purulent with 1200 WBC (1200 WBC, 62N, 37L) and low glucose and increased protein. Again the early infection studies are negative. I initiated plan to transfer her to [facility] for ID consultation and management. They did not have a bed yesterday, but they do today. In the meantime [facility] called me and connected me to an infectious disease physician (whose name I did not write down but she was very helpful) who reviewed the case with me and recommended we restart the Vanc and ampicilln with the ceftriaxone (which has been at 2g q12h since it was started last week) and that she might not give the amphotericin and TB drugs that were started yesterday. She has been basically afebrile during her hospital course. Also cytology on the initial CSF was atypical. She will be transferred to [facility] today. I tried to reconcile the medicine list so that those labeled new would be the meds she is currently receiving, and the discontinued will be her home list on admission for ease of interpretation by the accepting team. - Time spent with patient Time with patient DS: Greater than 30 minutes (transfer arrangements, medicine reconciliation, documentation) Diagnosis - Discharge Diagnosis (1) Diabetes Status: Chronic (2) Debility Status: Acute (3) Unspecified sleep apnea Status: Chronic (4) Obesity, unspecified Status: Chronic (5) Meningitis Status: Acute Specialty Discharge - Follow Up or Referrals Follow up with: Donna Sawant MD [Physician] - 11/18/16 1:15 pm (sleep center will mail out some new admit papers and need to bring them with her to her appointment) Discharge Plan - Discharge Data Disposition: Disch/Xfer-Ipshort Term Hos Condition at Discharge: Guarded Discharge Diet: diabetic diet, heart healthy - Discharge Medications New Acetaminophen Tab [Tylenol Tab] 650 mg PO Q4H PRN #0 tablet PRN Reason: fever, headache/body aches Albuterol Neb [Proventil Neb] 2.5 mg RESP TX RT Q6H Ampicillin Inj 1,000 mg IV Q8H vial Aspirin EC Tab 81 mg PO DAILY tablet Bisacodyl Tab [Dulcolax Tab] 10 mg PO DAILY PRN #0 tablet PRN Reason: Constipation Carvedilol [Coreg] 6.25 mg PO BID tablet Cyanocobalamin Tab [Vitamin B12 Tab] 1,000 mcg PO DAILY tablet Dexamethasone Tab [Decadron Tab] 3 mg PO BID tablet Ergocalciferol [Drisdol] 50,000 unit PO Q7D capsule Ethambutol [Myambutol] 1,600 mg PO DAILY tablet Gabapentin Cap/Tab [Neurontin Cap/Tab] 300 mg PO TID capsule Glucagon 1 mg IM PRN PRN #0 vial PRN Reason: Hypoglycemia w/o IV access Isoniazid 300 mg PO DAILY tablet Lisinopril [Prinivil] 20 mg PO DAILY tablet Montelukast Tab [Singulair Tab] 10 mg PO DAILY tablet Pyrazinamide 2,000 mg PO DAILY tablet QUEtiapine [SEROquel] 25 mg PO BEDTIME tablet Rifampin Cap [Rifadin Cap] 600 mg PO DAILY capsule Vancomycin Inj 1,000 mg IV Q8H vial cefTRIAXone [Rocephin] 2,000 mg IV Q12H vial prednisoLONE AC 1% OPH SUSP [Pred Forte] 1 drop BOTH EYES QID bottle Amphotericin B [Fungizone] 95 mg IV Q24H vial Dextrose 50% [D50] 25 gm IV PRN PRN #0 vial PRN Reason: Hypoglycemia with IV access Insulin Regular [HumuLIN R] See Protocol SUBCUT ACHS unit Simvastatin [Zocor] 20 mg PO BEDTIME tablet Discontinued Montelukast Tab [Singulair Tab] 10 mg PO DAILY Lisinopril 20 mg PO DAILY Insulin Detemir [Levemir FlexPen] 50 unit SUBCUT BEDTIME Cyanocobalamin (Vitamin B-12) [Vitamin B-12] 1,000 mcg PO DAILY prednisoLONE AC 1% OPH SUSP [Pred Forte] 1 drop BOTH EYES QID Ergocalciferol (Vitamin D2) [Vitamin D2] 50,000 unit PO Q7D SUMAtriptan TAB [Imitrex Tab] 50 mg PO Q2-3H PRN PRN Reason: Headache Glyburide/Metformin HCl [Glyburide-Metformin 5-500 mg] 2 each PO BID W/MEALS Gabapentin 300 mg PO TID Simvastatin 20 mg PO QPM Albuterol Inhaler [Proventil Inhaler] 2 puff INH Q6HR Propylene Glycol/Peg 400 [Systane Gel Drops] 15 ml BOTH EYES QID PRN PRN Reason: Dry Eyes Carvedilol [Coreg] 6.25 mg PO BID Insulin Aspart [NovoLOG FlexPen] 10 unit SUBCUT TID W/MEALS Aspirin [Ecotrin] 81 mg PO DAILY Mineral Oil/Petrolatum,White [Artificial Tears Eye Ointment] 3.5 gm BOTH EYES BEDTIME PRN PRN Reason: moisturization - Follow Up or Referral Follow Up: Donna Sawant MD [Physician] - 11/18/16 1:15 pm (sleep center will mail out some new admit papers and need to bring them with her to her appointment) - Forms/Instructions Exam - Constitutional Vitals: Period Temp Pulse Resp BP Sys/Hartmann Pulse Ox Last 24 Hr 97.5 F-98.5 F 59-88 17-21 135-160/71-94 92-99 General appearance: no acute distress, morbidly obese - Head Head exam: Present: normocephalic, atraumatic - Eye Eye exam: Present: EOMI. Absent: scleral icterus Pupils: Present: LIVIA - Respiratory Respiratory exam: Present: clear to auscultation bilaterally - Cardiovascular Cardiovascular exam: Present: regular rate and rhythm - GI/Abdominal GI/Abdominal exam: Present: normal bowel sounds, soft. Absent: tenderness - Extremities Exam Extremities exam: Absent: edema - Neurological Exam Neurological exam: Present: alert, CN II-XII intact, motor sensory deficit ( general debility, but moves all 4 weakly. diminished sensaton in feet from diabetic neuropathy). Absent: oriented X3 - Skin Skin exam: Present: warm, dry, other (cash on her calves and thighs from the internal medicine nurse practitioner) Discharge Results Procedures and tests throughout hospitalization: Pending Orders 11/04/16 12:20 AFB Culture/Smears Stat 11/05/16 DEION CSF([facility]) Stat Viral Culture, Non-Respiratory Stat 11/05/16 10:54 Fungal Culture w/ Prep Stat 11/05/16 11:00 Cytology Request Stat 11/11/16 10:00 AFB Culture/Smears Angiotensin Convert Enzyme CSF IN AM Cryptococcal Antigen IN AM Fungal Culture w/ Prep IN AM Herpes Simplex Virus,PCR,CSF IN AM Vivien Ink IN AM Meningitis Ags w/CSF Cult/Smea Mycobacterium tuberculosis PCR IN AM Toxoplasma gondi PCR CSF IN AM VDRL Spinal Fluid IN AM Viral Culture, Non-Respiratory IN AM West Nile Virus, CSF IgG/M IN AM 11/11/16 15:14 NE EEG adult awake/drowsy Routine Labs on day of discharge: Labs from last 24 hours 11/12/16 11/12/16 11/12/16 10:16 07:06 04:49 WBC RBC Hgb Hct MCV MCH MCHC RDW Plt Count MPV Neut % (Auto) Lymph % (Auto) [place] % (Auto) Eos % (Auto) Baso % (Auto) Neut # (Auto) Lymph # (Auto) [place] # (Auto) Eos # (Auto) Baso # (Auto) Total Counted Immature Gran % Nucleated RBC % Immature Gran # Segmented Neutrophils Lymphocytes Monocytes Nucleated RBCs # Platelet Estimate Hypochromasia Microcytosis Sodium 141 Potassium 3.4 L Chloride 104 Carbon Dioxide 21 Anion Gap 19.4 H BUN 16 Creatinine 0.90 GFR Calculation 89 BUN/Creatinine Ratio 17.00 Glucose 202 H POC Glucose 147 H Calculated Osmolality 287.3 Calcium 8.4 L Phosphorus 3.5 Magnesium 2.0 Total Bilirubin 1.20 H AST 20 ALT 31 Alkaline Phosphatase 70 Total Protein 6.1 L Albumin 2.8 L Globulin 3.3 Albumin/Globulin Ratio 0.8 L CSF Appearance CSF Color CSF WBC CSF RBC CSF Diff Total Count CSF Neutrophils CSF Lymphocytes CSF Monocytes CSF Lactate CSF West [place] IgG Ab CSF [place] IgM Ab CSF [place] Interp HIV 1&2 Antigen & Ab Nonreactive 11/12/16 11/12/16 11/11/16 04:49 04:14 23:20 WBC 22.0 H D RBC 4.06 Hgb 12.1 Hct 35.4 L MCV 87.2 MCH 30 MCHC 34.2 RDW 12.6 Plt Count 187 MPV 10.0 Neut % (Auto) 92.6 H Lymph % (Auto) 2.5 L [place] % (Auto) 3.4 Eos % (Auto) 0.0 Baso % (Auto) 0.1 Neut # (Auto) 20.4 H Lymph # (Auto) 0.6 L [place] # (Auto) 0.7 Eos # (Auto) 0.0 Baso # (Auto) 0.0 Total Counted 100 Immature Gran % 1.4 Nucleated RBC % 0.0 Immature Gran # 0.31 Segmented Neutrophils 91 H Lymphocytes 4 L Monocytes 5 Nucleated RBCs # 0.00 Platelet Estimate Adequate Hypochromasia Slight Microcytosis 1+ Sodium Potassium Chloride Carbon Dioxide Anion Gap BUN Creatinine GFR Calculation BUN/Creatinine Ratio Glucose POC Glucose 221 H 98 Calculated Osmolality Calcium Phosphorus Magnesium Total Bilirubin AST ALT Alkaline Phosphatase Total Protein Albumin Globulin Albumin/Globulin Ratio CSF Appearance CSF Color CSF WBC CSF RBC CSF Diff Total Count CSF Neutrophils CSF Lymphocytes CSF Monocytes CSF Lactate CSF West [place] IgG Ab CSF [place] IgM Ab CSF [place] Interp HIV 1&2 Antigen & Ab 11/11/16 11/11/16 11/11/16 21:21 17:00 10:00 WBC RBC Hgb Hct MCV MCH MCHC RDW Plt Count MPV Neut % (Auto) Lymph % (Auto) [place] % (Auto) Eos % (Auto) Baso % (Auto) Neut # (Auto) Lymph # (Auto) [place] # (Auto) Eos # (Auto) Baso # (Auto) Total Counted Immature Gran % Nucleated RBC % Immature Gran # Segmented Neutrophils Lymphocytes Monocytes Nucleated RBCs # Platelet Estimate Hypochromasia Microcytosis Sodium Potassium Chloride Carbon Dioxide Anion Gap BUN Creatinine GFR Calculation BUN/Creatinine Ratio Glucose POC Glucose 71 L 114 H Calculated Osmolality Calcium Phosphorus Magnesium Total Bilirubin AST ALT Alkaline Phosphatase Total Protein Albumin Globulin Albumin/Globulin Ratio CSF Appearance Clear CSF Color Colorless CSF WBC 1200 CSF RBC 929 CSF Diff Total Count 100 CSF Neutrophils 62 CSF Lymphocytes 37 CSF Monocytes 1 CSF Lactate CSF [place] IgG Ab CSF [place] IgM Ab CSF [place] Interp HIV 1&2 Antigen & Ab 11/11/16 11/05/16 10:00 Unknown WBC RBC Hgb Hct MCV MCH MCHC RDW Plt Count MPV Neut % (Auto) Lymph % (Auto) [place] % (Auto) Eos % (Auto) Baso % (Auto) Neut # (Auto) Lymph # (Auto) [place] # (Auto) Eos # (Auto) Baso # (Auto) Total Counted Immature Gran % Nucleated RBC % Immature Gran # Segmented Neutrophils Lymphocytes Monocytes Nucleated RBCs # Platelet Estimate Hypochromasia Microcytosis Sodium Potassium Chloride Carbon Dioxide Anion Gap BUN Creatinine GFR Calculation BUN/Creatinine Ratio Glucose POC Glucose Calculated Osmolality Calcium Phosphorus Magnesium Total Bilirubin AST ALT Alkaline Phosphatase Total Protein Albumin Globulin Albumin/Globulin Ratio CSF Appearance CSF Color CSF WBC CSF RBC CSF Diff Total Count CSF Neutrophils CSF Lymphocytes CSF Monocytes CSF Lactate 3.6 H CSF West [place] IgG Ab Negative CSF [place] IgM Ab Negative CSF [place] Interp See comments HIV 1&2 Antigen & Ab Preliminary micro results at discharge 11/11/16 10:00 CSF Culture - Preliminary Cerebral Spinal Fluid No growth at 24 hours 11/05/16 10:54 Fungal Culture - Preliminary Cerebral Spinal Fluid No Fungus isolated at 1 week 11/05/16 10:54 Mycobacterial Culture - Preliminary Cerebral Spinal Fluid No AFB isolated at 1 week DS: Provider Date of admission: 11/03/16 22:55 Primary care physician: Rolly Newsome MD Attending physician on admission: Joy Almonte MD Consults: 11/03/16 23:02 Consult to Physical Therapy [CONS] Routine Reason for Physical Therapy: Evaluate and Treat 11/04/16 00:28 Consult to Dietitian [CONS] Routine Reason for Dietitian: Dietary Consult 11/04/16 00:50 Consult to Pharmacy [CONS] Routine Reason for Pharmacy Consult: Adjust Meds Renal Funct 11/04/16 12:16 Consult to Occupational Therapy [CONS] Routine Reason for Occupational Therapy: Evaluate and Treat 11/04/16 12:36 Consult to Pharmacy [CONS] Routine Reason for Pharmacy Consult: Dose/Manage Vancomycin 11/04/16 18:39 Consult to Case Mgmt/Social Srvs [CONS] Routine Reason for Case Mgmt/Social Srvs: Rehab Consult Comment: kacy Tierney for rehab 11/05/16 10:26 Consult to Physician [CONS] Routine Comment: hakeem Consulting Provider: Donna Sawant Person Notified: erica Date Notified: 11/05/16 Time Notified: 11:19 Consult to Sleep Center [CONS] Routine Reason for Sleep Center: Sleep Center Physician Consult Comment: hakeem 11/10/16 07:58 Consult to Case Mgmt/Social Srvs [CONS] Routine Reason for Case Mgmt/Social Srvs: LTAC 11/11/16 15:38 Consult to Pharmacy [CONS] Routine Reason for Pharmacy Consult: Other Comment: Monitor amphotericin B and labs (Mg & K) Discharging clinician: Beatriz Nguyen MD
[2016-11-12] MEDS: AMPICILLIN INJ 1,000 MG in SODIUM CHLORIDE 0.9% 100 ML IV SCH (14:32)
[2016-11-12] MEDS: VANCOMYCIN INJ 1,000 MG in SODIUM CHLORIDE 0.9% 250 ML IV SCH (14:32)
[2016-11-12] MEDS: AMPHOTERICIN B IV SCH (19:44)
[2016-11-12] MEDS: DEXTROSE 5% IV SCH (19:44)
[2016-11-12] MEDS: DEXTROSE 50% 25 GM/50 ML VIAL IV PRN (20:26)
[2016-11-12] MEDS: SIMVASTATIN 20 MG TABLET PO SCH (21:12)
[2016-11-12] MEDS: QUEtiapine 25 MG TABLET PO SCH (21:12)
[2016-11-13] MEDS: ALBUTEROL 2.5 MG/3 ML NEB RESP TX SCH ×4 (00:41→19:52)
[2016-11-13] MEDS: VANCOMYCIN INJ 1,000 MG in SODIUM CHLORIDE 0.9% 250 ML IV SCH ×3 (03:52→20:41)
[2016-11-13] MEDS: AMPICILLIN INJ 1,000 MG in SODIUM CHLORIDE 0.9% 100 ML IV SCH ×3 (03:57→19:52)
[2016-11-13] MEDS: cefTRIAXone 2,000 MG in SODIUM CHLORIDE 0.9% 100 ML IV SCH ×2 (05:55→18:14)
[2016-11-13] MEDS: DEXTROSE 5% 1,000 ML IV SCH ×2 (08:54→17:18)
[2016-11-13] MEDS: INSULIN REGULAR 100 UNIT/ML SUBCUT SCH ×4 (08:54→21:00)
[2016-11-13] MEDS: DEXTROSE 50% 25 GM/50 ML VIAL IV PRN (09:47)
[2016-11-13] MEDS: GABAPENTIN 300 MG CAPSULE PO SCH (09:49)
[2016-11-13] MEDS: LISINOPRIL 20 MG TABLET PO SCH (09:50)
[2016-11-13] MEDS: PYRAZINAMIDE 500 MG TABLET PO SCH (09:50)
[2016-11-13] MEDS: CYANOCOBALAMIN 500 MCG TABLET PO SCH (09:51)
[2016-11-13] MEDS: RIFAMPIN 300 MG CAPSULE PO SCH (09:51)
[2016-11-13] MEDS: MONTELUKAST 10 MG TABLET PO SCH (09:53)
[2016-11-13] MEDS: ETHAMBUTOL 400 MG TABLET PO SCH (09:53)
[2016-11-13] MEDS: CARVEDILOL 6.25 MG TABLET PO SCH ×2 (09:53→20:42)
[2016-11-13] MEDS: ISONIAZID 300 MG TABLET PO SCH (09:53)
[2016-11-13] MEDS: DEXAMETHASONE 4 MG TABLET PO SCH ×2 (09:53→20:42)
[2016-11-13] MEDS: prednisoLONE ACETATE 1% OPH SUSP 5 ML BOTTLE BOTH EYES SCH ×4 (09:56→20:42)
[2016-11-13] MEDS: DESITIN 4OZ/NYSTATIN 15 GRAM MIXTURE PASTE TOP SCH ×2 (09:56→20:42)
[2016-11-13 10:02] LABS: Calcium 8.2 MG/DL (8.5-10.1); Osmolality,Calculated 289.1 MOS/KG (273-304)
[2016-11-13] MEDS ORDERED: POTASSIUM CHLORIDE 20 MEQ TABLET PO ONE (12:00)
[2016-11-13 12:07] LABS: VDRL Spinal Fluid Negative (Negative)
[2016-11-13] MEDS: ACETAMINOPHEN 325 MG TABLET PO PRN (14:53)
--- NOTE | 2016-11-13 15:30 | Hospitalist Progress Note ---
Assessment and Plan (1) Meningitis Status: Acute Assessment and plan: 1)meningitis- repeat CSF 2 days ago looked worse. On advice of ID at [facility], I restarted vanc and amp to the ceftriaxone she has been on throughout. She is also on amphotericin and tb drugs per neurology. He is on diversion yesterday and today, which I just learned. I was going to discuss stopping the ampho with him as that is what the ID attending at [facility] recommended but will stop it now since her creatinine is rising. Her CSF studies remain negative. check cbc in am. afebrile. She is awaiting transfer to [facility], they think they will have a bed today. In the meantime we will get her a PICC line. she may need to be restrained to keep her from pullling it out. 2)DM with hypoglycemia- SSI, only if accuchecks over 200, on D5 now with BP up from the low of ealier this morning. Encourage oral intake also as long as she is alert enough. 3)morbid obesity 4)UTI- convered with ceftriaxone 5)dispo- to [facility] 6)MILKA- stop amphotericin on advice of ID, monitor potassuim and creatinine. Current Visit: Yes (2) Diabetes Status: Chronic Current Visit: Yes (3) Debility Status: Acute Current Visit: Yes (4) Unspecified sleep apnea Status: Chronic Current Visit: Yes (5) Obesity, unspecified Status: Chronic Current Visit: Yes Hospitalist: Subjective Interval history: Mrs Anderson had hypoglycemia this morning, which resolved with D50. She is on IVF with D5 now. She is scheduled for a PICC line today. She is waiting on a bed to be available at [facility] for transfer. She wakes to voice and responds though she is sleepier than she was yesterday. Her oral hypoglycemic has been stopped as well as the seroquel and neurontin. Exam - Constitutional Vitals: Period Temp Pulse Resp BP Sys/Hartmann Pulse Ox Last 24 Hr 97.6 F-98.1 F 51-68 17-24 127-155/70-79 94-98 General appearance: no acute distress, morbidly obese - Head Head exam: Present: normocephalic, atraumatic - Eye Eye exam: Present: EOMI. Absent: scleral icterus - Respiratory Respiratory exam: Present: clear to auscultation bilaterally - Cardiovascular Cardiovascular exam: Present: regular rate and rhythm - GI/Abdominal GI/Abdominal exam: Present: normal bowel sounds, soft. Absent: tenderness - Extremities Exam Extremities exam: Absent: edema - Neurological Exam Neurological exam: Present: other (moves all 4, pulls out her IV, cooperates and follows commands in the short term. Awake as usual now per nurse. able to eat.). Absent: oriented X3 - Skin Skin exam: Present: warm, dry Results - Labs CBC & BMP: 11/12/16 04:49 11/13/16 08:38 Lab Results: I have reviewed the past 24 hour labs Specialty Discharge - Follow Up or Referrals Follow up with: Donna Sawant MD [Physician] - 11/18/16 1:15 pm (sleep center will mail out some new admit papers and need to bring them with her to her appointment)
[2016-11-13] MEDS ORDERED: HEPARIN LOCK FLUSH 500 UNIT/5 ML SYRINGE IV PRN (16:10)
--- NOTE | 2016-11-13 16:10 | Post Interventional Procedure ---
Pre-op diagnosis: IV access needed for long-term antibiotic therapy Post-op diagnosis: same Procedure: Left arm PICC line. Ultrasound guidance for vascular access Flouroscopy: 0.3 minutes Radiologist: Ileana Peoples [employer] Supervisor: Rakesh Logan Anesthesia: local Specimens: none sent Estimated blood loss: none Complications: none Condition: stable Description/Findings: A formal timeout was performed. Sonographic evaluation of the left upper extremity demonstrates patent and compressible brachial vein. The basilic and cephalic veins are at least partially thrombosed. Maximum sterile barrier technique was utilized. The upper arm was prepped and draped in sterile fashion. 3 cc 1% lidocaine was administered subcutaneously. Under sonographic guidance, a micropuncture needle was advanced into the vein. A captured sonographic image documents the position of the needle. Needle was exchanged over a wire for a peel-away sheath. A dual lumen power PICC, cut to 44 cm cm, was advanced over the wire until the tip was at the RA-SVC junction. The position of the catheter was confirmed with fluoroscopic guidance and an image stored in PACS. The wire and sheath were removed. Both ports of the PICC were aspirated and flushed with heparinized saline. The device was secured with a StatLock. Assessment and Plan - Time spent with patient Time spent with patient: Less than 30 minutes Time spent discussing smoking cessation with patient: 3 to 10 minutes
--- NOTE | 2016-11-13 16:13 | Interventional Radiology Rpt ---
History: IV access needed for long-term antibiotic therapy Date: 11/13/2016 Study: Left arm PICC line. Ultrasound guidance for vascular access Comparison exam: November 06, 2016 PICC LINE Description: A formal timeout was performed. Sonographic evaluation of the left upper extremity demonstrates patent and compressible brachial vein. The basilic and cephalic veins are at least partially thrombosed. Maximum sterile barrier technique was utilized. The upper arm was prepped and draped in sterile fashion. 3 cc 1% lidocaine was administered subcutaneously. Under sonographic guidance, a micropuncture needle was advanced into the vein. A captured sonographic image documents the position of the needle. Needle was exchanged over a wire for a peel-away sheath. A dual lumen power PICC, cut to 44 cm cm, was advanced over the wire until the tip was at the RA-SVC junction. The position of the catheter was confirmed with fluoroscopic guidance and an image stored in PACS. The wire and sheath were removed. Both ports of the PICC were aspirated and flushed with heparinized saline. The device was secured with a StatLock. Fluoroscopy: 0.3 minutes. Fluoroscopic images: 1 Impression: PICC line ready for immediate use. Routine catheter care. PROCEDURE INTERPRETED AT [facility] DEPARTMENT OF RADIOLOGY Final Report Signed by: Dr. Ileana Peoples
[2016-11-13 16:32] LABS: West Nile Virus Ab, IgG, CSF Negative (Negative); West Nile Virus Ab, IgM, CSF Negative (Negative)
[2016-11-13] MEDS: SIMVASTATIN 20 MG TABLET PO SCH (20:42)
[2016-11-14] MEDS: ALBUTEROL 2.5 MG/3 ML NEB RESP TX SCH ×3 (00:05→13:23)
[2016-11-14] MEDS: DEXTROSE 5% 1,000 ML IV SCH ×4 (00:50→18:08)
[2016-11-14] MEDS: AMPICILLIN INJ 1,000 MG in SODIUM CHLORIDE 0.9% 100 ML IV SCH ×2 (03:55→11:51)
[2016-11-14] MEDS: VANCOMYCIN INJ 1,000 MG in SODIUM CHLORIDE 0.9% 250 ML IV SCH ×2 (04:31→12:53)
[2016-11-14 06:05] LABS: Basophils # 0.1 10*3/uL (0.0-0.2); Basophils % 0.3 % (0.0-0.8); Eosinophils # 0.1 10*3/uL (0.0-0.87); Eosinophils % 0.5 % (0.00-10.9); Hematocrit 34.8 VOL% (35.7-47.0); Hemoglobin 12.2 GM/DL (12.0-16.0); Immature Granulocytes % 0.8 %; Immature Granulocytes Absolute 0.12 #; Mean Corpuscular HGB Conc 35.1 GM/DL (32-36); Mean Corpuscular Hemoglobin 30 PG (27-34); Mean Corpuscular Volume 86.1 FL (87-102); Mean Platelet Volume 10.5 FL (9.6-12.0); Monocytes # 0.9 10*3/uL (0.11-0.8); Monocytes % 5.9 % (1.7-12.7); Neutrophils # 12.2 10*3/uL (1.4-7.4); Neutrophils % 79.5 % (38.7-73.9); Platelet Count 140 T/CUMM (130-400); Red Blood Count 4.04 MC/CUMM (3.8-5.5); Red Cell Distribution Width 13.2 % (9.3-17.3); White Blood Count 15.3 T/CUMM (4-12)
[2016-11-14 06:40] LABS: Albumin 2.6 G/DL (3.4-5.0); Bilirubin,Total 1.3 MG/DL (0.2-1.0); Calcium 8.2 MG/DL (8.5-10.1); Osmolality,Calculated 284.4 MOS/KG (273-304); Potassium 3.1 MMOL/L (3.5-5.1)
[2016-11-14] MEDS: cefTRIAXone 2,000 MG in SODIUM CHLORIDE 0.9% 100 ML IV SCH ×2 (07:00→18:07)
--- NOTE | 2016-11-14 08:38 | Hospitalist Progress Note ---
Assessment and Plan - Time spent with patient Time spent with patient: Less than 30 minutes (1) Meningitis Status: Acute Assessment and plan: Have reviewed Dr. Bowman's note. On advice of infectious disease who comes to the patient is now on vancomycin, ampicillin, ceftriaxone. We are waiting bed for possible transfer to [facility]. Current Visit: Yes (2) Encephalopathy Status: Acute Assessment and plan: Patient remains confused and this is secondary to infectious encephalopathy secondary to her meningitis. Continue treating underlying process. Current Visit: Yes (3) Acute kidney injury Status: Acute Assessment and plan: She had evidence of acute kidney injury which is improved overnight with decrease in creatinine from 1.3 to 0.9. Current Visit: Yes (4) Hypokalemia Status: Acute Assessment and plan: Supplementing potassium intravenously and will follow-up studies in the a.m. Current Visit: Yes (5) Diabetes Status: Chronic Assessment and plan: She has had no further hypoglycemic episodes of blood sugars are fairly well- controlled in the 150 range. Current Visit: Yes (6) Morbid obesity Status: Acute Current Visit: Yes Hospitalist: Subjective Interval history: Ms. Anderson pulled her PICC line out today. She continues to be somewhat confused but she is very talkative. We are awaiting bed availability for transfer to [facility] and discharged summary has been completed by Dr. Nguyen. She continues to have peripheral IV access which we will continue at this time. She is tolerating her diet. Exam - Constitutional Vitals: Period Temp Pulse Resp BP Sys/Hartmann Pulse Ox Last 24 Hr 96.8 F-98.2 F 48-68 18-24 133-161/62-96 94-99 General appearance: no acute distress, morbidly obese - Head Head exam: Present: normocephalic, atraumatic - Eye Eye exam: Present: EOMI. Absent: scleral icterus Pupils: Present: LIVIA - ENT ENT exam: Present: normal oropharynx - Neck Neck exam: Absent: lymphadenopathy, meningismus, tenderness, thyromegaly - Respiratory Respiratory exam: Present: clear to auscultation bilaterally - Cardiovascular Cardiovascular exam: Present: regular rate and rhythm. Absent: tachycardia - GI/Abdominal GI/Abdominal exam: Present: normal bowel sounds, soft. Absent: tenderness, rebound - Extremities Exam Extremities exam: Absent: calf tenderness, edema - Back Exam Back exam: Present: normal inspection - Neurological Exam Neurological exam: Present: alert, CN II-XII intact, other (She is awake alert but confused, she will follow commands and is fairly cooperative however she did pull her PICC line out this morning as noted). Absent: oriented X3, motor sensory deficit - Skin Skin exam: Present: warm, dry. Absent: rash Results - Labs CBC & BMP: 11/14/16 05:32 11/14/16 05:32 Lab Results: I have reviewed the past 24 hour labs Specialty Discharge - Follow Up or Referrals Follow up with: Donna Sawant MD [Physician] - 11/18/16 1:15 pm (sleep center will mail out some new admit papers and need to bring them with her to her appointment)
[2016-11-14] MEDS: INSULIN REGULAR 100 UNIT/ML SUBCUT SCH ×3 (08:52→16:35)
[2016-11-14] MEDS: CYANOCOBALAMIN 500 MCG TABLET PO SCH (08:58)
[2016-11-14] MEDS: RIFAMPIN 300 MG CAPSULE PO SCH (08:59)
[2016-11-14] MEDS: MONTELUKAST 10 MG TABLET PO SCH (08:59)
[2016-11-14] MEDS: CARVEDILOL 6.25 MG TABLET PO SCH (08:59)
[2016-11-14] MEDS: ETHAMBUTOL 400 MG TABLET PO SCH (08:59)
[2016-11-14] MEDS: ISONIAZID 300 MG TABLET PO SCH (08:59)
[2016-11-14] MEDS: DEXAMETHASONE 4 MG TABLET PO SCH (08:59)
[2016-11-14] MEDS: prednisoLONE ACETATE 1% OPH SUSP 5 ML BOTTLE BOTH EYES SCH ×3 (09:00→18:08)
[2016-11-14] MEDS: DESITIN 4OZ/NYSTATIN 15 GRAM MIXTURE PASTE TOP SCH (09:00)
[2016-11-14] MEDS: PYRAZINAMIDE 500 MG TABLET PO SCH (09:00)
[2016-11-14] MEDS: POTASSIUM CHLORIDE 20 MEQ TABLET PO PRN ×3 (11:13→16:35)
[2016-11-14 15:26] VITALS: BP 184/86
--- NOTE | 2016-11-16 18:18 | Electroencephalogram ---
HISTORY: A 61-year-old female with a history of change in mental status. INTRODUCTION: A digital EEG was performed using the standard 10/20 system of electrode placement wi th one channel of EEG monitoring. Photic stimulation is performed. DESCRIPTION OF RECORD: The background is somewhat disorganized, consists of 5 to 6 Hz low amplitude bilaterally symmetrical rhythm. This record is contaminated with muscles and movement artifacts. Photic stimulation does elicit a driving response at slower flash frequencies. There are no focal, sharp wave, spike, or wave activity seen. Heart rate 75 beats per minute. IMPRESSION: ABNORMAL EEG DUE TO GENERALIZED SLOWING. CLINICAL CORRELATION: This record is supportive of moderate to severe encephalopathy, which could b e secondary to postictal state, post-hypoxic state, metabolic disorder, diffuse [employer] insult, or incre ased intracranial pressure. No epileptiform/seizure activity is seen. Clinical correlation is sugges sirena.
[2016-11-18 12:53] LABS: M. Tuberculosis PCR Result Negative (Negative); M. Tuberculosis PCR Source CSF
== END 2016-11-14 19:12 | disposition hospice, home (50) | DRG 75 ==
LOC: EDBD → EDUNIT# → N.EDINP 20:09 → N.ED 20:09 → SUATTDRO 22:55 → OBSVTOIN 22:55 → N.5E 23:39
PROVIDERS: ADMIT Internal Medicine; ATTEND Hospitalist

== ENCOUNTER 2022-04-15 17:10 | Inpatient (IN) ==
[2022-04-15 18:02] LABS: Basophils # 0.1 10*3/uL (0.0-0.2); Basophils % 0.7 % (0.0-0.8); Eosinophils # 1.6 10*3/uL (0.0-0.87); Hematocrit 36.3 VOL% (35.7-47.0); Hemoglobin 11.9 GM/DL (12.0-16.0); Immature Granulocytes % 0.4 %; Immature Granulocytes Absolute 0.03 #; Lymphocytes # 1.5 10*3/uL (1.4-4.0); Lymphocytes % 18.2 % (21.3-54.2); Mean Corpuscular HGB Conc 32.8 GM/DL (32-36); Mean Corpuscular Volume 92.4 FL (87-102); Mean Platelet Volume 10.8 FL (9.6-12.0); Monocytes # 0.7 10*3/uL (0.11-0.8); Monocytes % 8.3 % (1.7-12.7); Neutrophils % 53.4 % (38.7-73.9); Platelet Count 199 T/CUMM (130-400); Red Blood Count 3.93 MC/CUMM (3.8-5.5); Red Cell Distribution Width 14.6 % (9.3-17.3); White Blood Count 8.2 T/CUMM (4-12)
[2022-04-15 18:33] LABS: Eosinophils 12 % (0-10); Lymphocytes 20 % (20-55); Total Cells Counted 100
[2022-04-15 18:34] LABS: Platelet Estimate Adequate
[2022-04-15 18:35] LABS: PT Patient Result 10.8 SECS (10.1-12.1)
[2022-04-15 18:46] LABS: Alanine Aminotransferase 23 U/L (13-56); Albumin 3.2 G/DL (3.4-5.0); Alkaline Phosphatase 125 U/L (45-117); Aspartate Amino Transferase 18 U/L (0-37); Bilirubin,Total < 0.39 MG/DL (0.20-1.00); Blood Urea Nitrogen 20 MG/DL (7-18); Calcium 8.8 MG/DL (8.5-10.1); Carbon Dioxide 26 MMOL/L (21-32); Chloride 111 MMOL/L (98-107); Glucose 150 MG/DL (74-106); Osmolality,Calculated 286.3 MOS/KG (273-304); Potassium 4.2 MMOL/L (3.5-5.1); Sodium 141 MMOL/L (136-145); Total Protein 7.3 G/DL (6.4-8.2)
[2022-04-15] MEDS ORDERED: MAGNESIUM SULF RIDER 2 GM/50 ML PREMIX IV PRN (19:43)
[2022-04-15] MEDS ORDERED: MAGNESIUM SULF RIDER 4 GM/100 ML PREMIX IV PRN (19:43)
[2022-04-15 20:43] LABS: Barbiturates Screen,Urine Negative (Negative); Benzodiazepines Screen,Urine Negative (Negative); Cannabinoid Screen,Urine Negative (Negative); Opiate Screen,Urine Negative (Negative); Phencyclidine Screen,Urine Negative (Negative)
[2022-04-15] MEDS: FAMOTIDINE 20 MG TABLET PO SCH (21:19)
[2022-04-15] MEDS: levETIRAcetam 500 MG TABLET PO SCH (21:19)
[2022-04-15] MEDS: ATORVASTATIN 40 MG TABLET PO SCH (21:19)
[2022-04-16 05:34] LABS: Basophils # 0.1 10*3/uL (0.0-0.2); Basophils % 0.9 % (0.0-0.8); Eosinophils # 1.5 10*3/uL (0.0-0.87); Eosinophils % 20.6 % (0.00-10.9); Hematocrit 35.4 VOL% (35.7-47.0); Hemoglobin 11.1 GM/DL (12.0-16.0); Immature Granulocytes % 0.1 %; Immature Granulocytes Absolute 0.01 #; Lymphocytes # 1.9 10*3/uL (1.4-4.0); Lymphocytes % 25.2 % (21.3-54.2); Mean Corpuscular HGB Conc 31.4 GM/DL (32-36); Mean Corpuscular Volume 95.2 FL (87-102); Mean Platelet Volume 11.3 FL (9.6-12.0); Monocytes # 0.7 10*3/uL (0.11-0.8); Monocytes % 9.3 % (1.7-12.7); Neutrophils % 43.9 % (38.7-73.9); Platelet Count 193 T/CUMM (130-400); Red Blood Count 3.72 MC/CUMM (3.8-5.5); Red Cell Distribution Width 14.6 % (9.3-17.3); White Blood Count 7.4 T/CUMM (4-12)
[2022-04-16 05:53] LABS: Albumin 2.7 G/DL (3.4-5.0); Bilirubin,Total 0.4 MG/DL (0.20-1.00); Calcium 8.1 MG/DL (8.5-10.1); Osmolality,Calculated 287.8 MOS/KG (273-304); Potassium 4.4 MMOL/L (3.5-5.1); Total Protein 6.4 G/DL (6.4-8.2)
[2022-04-16 06:07] LABS: Eosinophils 27 % (0-10); Lymphocytes 27 % (20-55); Platelet Estimate Adequate; Total Cells Counted 100
[2022-04-16] MEDS ORDERED: ceFAZolin 1,000 MG VIAL IRRIG ONE (07:33)
[2022-04-16] MEDS ORDERED: SODIUM CHLORIDE 0.9% 1,000 ML IV SCH (08:00)
[2022-04-16] MEDS: FAMOTIDINE 20 MG TABLET PO SCH ×2 (10:42→21:58)
[2022-04-16] MEDS: levETIRAcetam 500 MG TABLET PO SCH ×2 (10:42→21:58)
[2022-04-16] MEDS ORDERED: ceFAZolin 1,000 MG VIAL ONE (11:21)
[2022-04-16] MEDS ORDERED: MIDAZOLAM 2 MG/2 ML VIAL ONE ×3 (11:21→13:00)
[2022-04-16] MEDS ORDERED: fentaNYL 100 MCG/2 ML VIAL ONE (11:21)
[2022-04-16] MEDS ORDERED: PROMETHAZINE 25 MG/1 ML VIAL ONE (12:31)
[2022-04-16] MEDS ORDERED: HYDROmorphone 1 MG/1 ML SYRINGE ONE ×2 (13:05→13:18)
[2022-04-16] MEDS ORDERED: TISSUE ADHESIVE 1 EACH APPLICATOR TOP ONE (13:24)
[2022-04-16] MEDS ORDERED: ALUMINUM/MAGNES/SIMETH MAX STR 30 ML UDCUP PO PRN (13:49)
[2022-04-16] MEDS ORDERED: ZALEPLON 5 MG CAPSULE PO PRN (13:49)
[2022-04-16] MEDS ORDERED: ONDANSETRON 4 MG/2 ML VIAL IV PRN (13:49)
[2022-04-16] MEDS ORDERED: PERMETHRIN 5% CREAM 60 GM TUBE TOP ONE (15:07)
[2022-04-16] MEDS: lamoTRIgine 100 MG TABLET PO SCH ×2 (17:27→21:58)
[2022-04-16] MEDS: ATORVASTATIN 40 MG TABLET PO SCH (21:58)
[2022-04-16] MEDS: DICLOFENAC 1% GEL 100 GM TUBE TOP SCH (21:59)
[2022-04-17 05:12] LABS: Basophils # 0.1 10*3/uL (0.0-0.2); Basophils % 0.5 % (0.0-0.8); Eosinophils # 1.2 10*3/uL (0.0-0.87); Eosinophils % 12.5 % (0.00-10.9); Hematocrit 37.8 VOL% (35.7-47.0); Immature Granulocytes % 0.2 %; Immature Granulocytes Absolute 0.02 #; Lymphocytes # 1.2 10*3/uL (1.4-4.0); Lymphocytes % 12.4 % (21.3-54.2); Mean Corpuscular HGB Conc 31.7 GM/DL (32-36); Mean Corpuscular Volume 93.3 FL (87-102); Mean Platelet Volume 11.1 FL (9.6-12.0); Monocytes # 0.6 10*3/uL (0.11-0.8); Monocytes % 6.5 % (1.7-12.7); Neutrophils % 67.9 % (38.7-73.9); Platelet Count 187 T/CUMM (130-400); Red Blood Count 4.05 MC/CUMM (3.8-5.5); Red Cell Distribution Width 14.4 % (9.3-17.3); White Blood Count 9.4 T/CUMM (4-12)
[2022-04-17 05:35] LABS: Calcium 8.5 MG/DL (8.5-10.1); Eosinophils 18 % (0-10); Lymphocytes 11 % (20-55); Microcytosis Slight; Osmolality,Calculated 284.4 MOS/KG (273-304); Ovalocytes Slight; Total Cells Counted 100
[2022-04-17 05:36] LABS: Platelet Estimate Adequate
[2022-04-17] MEDS ORDERED: LEVOTHYROXINE 100 MCG TABLET PO SCH (06:30)
[2022-04-17] MEDS: DICLOFENAC 1% GEL 100 GM TUBE TOP SCH (08:52)
[2022-04-17] MEDS: levETIRAcetam 500 MG TABLET PO SCH (08:52)
[2022-04-17] MEDS: FAMOTIDINE 20 MG TABLET PO SCH (08:52)
[2022-04-17] MEDS: lamoTRIgine 100 MG TABLET PO SCH (08:52)
[2022-04-17] MEDS ORDERED: METOPROLOL TARTRATE 25 MG TABLET PO SCH (09:54)
[2022-04-17 12:43] VITALS: BP 135/62
== END 2022-04-17 13:00 | disposition home or self-care (01) | DRG 243 ==
LOC: N.ED 17:10 → N.EDINP 19:58 → N.TELEN 04-16 14:44
PROVIDERS: ADMIT Internal Medicine Cardiovascular Disease; ATTEND Internal Medicine Cardiovascular Disease